=== PATIENT | female | born 1975 | race Caucasian/White ===

== ENCOUNTER 2017-04-16 21:15 | Inpatient (IN) | payer OTHER, MEDICAID, MEDICARE ==
[~2017-04-16] VITALS: Ht 162.6 cm; Wt 97.5 kg
[~2017-04-16 21:15] MED LIST: AMOX500T PO; DICL-86 PO
[2017-04-16 21:50] VITALS: BP 112/80; PULSE 65; RESP 14; TEMP 98.2; O2SAT 97
[2017-04-16 23:35] VITALS: BP 129/75; PULSE 68; RESP 18; O2SAT 100
[2017-04-16 23:36] VITALS: RESP 18; O2SAT 98
--- NOTE | 2017-04-16 23:38 | PD ---
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 Patient states that it started yesterday with a numbness and tingling. She states that the headache started tonight about 10:00. She reports that the numbness and tingling yesterday was in her right side. She said when the headache came on it went to her entire body. She denies any photophobia. She denies neck pain. She denies any chest pain or chest pressure. She states she takes a blood pressure medicine but does not recall which one it is. There are no other complaints time my examination. 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 PFSH Past Medical History High Cholesterol: Yes Diminished Hearing: No Hypertension: Yes Neurologic: Yes ?: Not Tubal Ligation: Yes Past Surgical History Section: Yes (X2) Neurologic Surgery: Yes (BRAIN SURGERY AT ) Other Surgery: Yes (HEAD SURG AT WHICH CAUSED LEFT SIDE PARAYLISIS) Social History Alcohol Use: No Tobacco Use: No Substance Use: Yes (MARIJUANA ) Allergies-Medications (Allergen,Severity, Reaction): Coded Allergies: Codeine (Verified Allergy, Mild, EDEMA, 01/30/07) Ultram (Verified Allergy, Mild, "MY EYES ROLL BACK", 07/06/07) Reported Meds & Prescriptions Reported Meds & Active Scripts Active Active Prescriptions or Reported Medications Unobtainable Review of Systems Except as stated in HPI: all other systems reviewed are Neg General / Constitutional: No: Fever, Chills Eyes: No: Diploplia, Blurred Vision HENT: Positive: Headaches, No: Neck Pain Cardiovascular: No: Chest Pain or Discomfort, Palpitations Respiratory: No: Cough, Shortness of Breath Gastrointestinal: No: Nausea, Vomiting, Abdominal Pain Genitourinary: No: Frequency, Dysuria Neurologic: Positive: Headache, Slurred Speech (earlier, none now), Sensory Disturbance (numbness and tingling of her right side and left side. Patient reports it started on her right side.), No: Change in Mentation Physical Exam Narrative GENERAL: Well-developed well-nourished female in no acute respiratory distress. SKIN: Focused skin assessment warm/dry. HEAD: Atraumatic. Normocephalic. EYES: Extraocular muscles appeared intact. No scleral icterus. No injection or drainage. ENT: No nasal bleeding or discharge. Mucous membranes pink and moist. NECK: Trachea midline. No JVD. Supple. CARDIOVASCULAR: Regular rate and rhythm. No murmur appreciated. RESPIRATORY: No accessory muscle use. Clear to auscultation. Breath sounds equal bilaterally. GASTROINTESTINAL: Abdomen soft, non-tender, nondistended. No pulsatile masses. MUSCULOSKELETAL: Left BKA. Patient also has contractures of her left upper extremity from . Patient's missing several toes on her right foot secondary to . NEUROLOGICAL: Awake and alert. No obvious cranial nerve deficits. Motor grossly within normal limits. Normal speech. Data Data Last Documented VS Vital Signs Date Time Temp Pulse Resp B/P Pulse Ox O2 Delivery O2 Flow Rate FiO2 04/16/17 23:36 18 98 04/16/17 23:35 68 129/75 04/16/17 21:50 98.2 Room Air Orders Complete Blood Count With Diff (04/16/17 23:33) Comprehensive Metabolic Panel (04/16/17 23:33) Ct Brain W/O Iv Contrast(Rout) (04/16/17 23:33) Chest, Single Ap (04/16/17 23:33) Place In Observation (04/17/17 ) Vital Signs (Adult) Q4H (04/17/17 02:57) Activity Oob With Assistance (04/17/17 02:57) Diet Regular Basic (04/17/17 Breakfast) Sodium Chlor 0.9% 1000 Ml Inj (Ns 1000 M (04/17/17 02:57) Sodium Chloride 0.9% Flush (Ns Flush) (04/17/17 03:00) Sodium Chloride 0.9% Flush (Ns Flush) (04/17/17 09:00) Ondansetron Inj (Zofran Inj) (04/17/17 03:00) Comprehensive Metabolic Panel (04/17/17 09:00) Complete Blood Count With Diff (04/17/17 09:00) Acetaminophen (Tylenol) (04/17/17 03:00) Morphine Inj (Morphine Inj) (04/17/17 03:00) Morphine Inj (Morphine Inj) (04/17/17 03:00) Docusate Sodium-Senna (Natasha-Colace) (04/17/17 09:00) Magnesium Hydroxide Liq (Milk Of Magnesi (04/17/17 03:00) Sennosides (Senokot) (04/17/17 03:00) Bisacodyl Supp (Dulcolax Supp) (04/17/17 03:00) Lactulose Liq (Lactulose Liq) (04/17/17 03:00) Mri Brain W/O Contrast (04/17/17 ) Beta Hcg (Quant/Titer) (04/17/17 02:57) Lipid Profile (04/17/17 09:00) Hemoglobin (Hgb) A1c (04/17/17 09:00) Aspirin Ec (Ecotrin Ec) (04/17/17 09:00) Pravastatin (Pravachol) (04/17/17 09:00) Admit Order (Ed Use Only) (04/17/17 03:20) Labs Laboratory Tests Test 04/16/17 23:36 White Blood Count 10.1 TH/MM3 Red Blood Count 5.14 MIL/MM3 Hemoglobin 11.6 GM/DL Hematocrit 37.6 % Mean Corpuscular Volume 73.3 FL Mean Corpuscular Hemoglobin 22.5 PG Mean Corpuscular Hemoglobin 30.8 % Concent Red Cell Distribution Width 17.7 % Platelet Count 287 TH/MM3 Mean Platelet Volume 7.9 FL Neutrophils (%) (Auto) 61.6 % Lymphocytes (%) (Auto) 27.9 % Monocytes (%) (Auto) 7.0 % Eosinophils (%) (Auto) 3.1 % Basophils (%) (Auto) 0.4 % Neutrophils # (Auto) 6.2 TH/MM3 Lymphocytes # (Auto) 2.8 TH/MM3 Monocytes # (Auto) 0.7 TH/MM3 Eosinophils # (Auto) 0.3 TH/MM3 Basophils # (Auto) 0.0 TH/MM3 CBC Comment DIFF FINAL Differential Comment Sodium Level 141 MEQ/L Potassium Level 4.1 MEQ/L Chloride Level 107 MEQ/L Carbon Dioxide Level 28.1 MEQ/L Anion Gap 6 MEQ/L Blood Urea Nitrogen 13 MG/DL Creatinine 1.08 MG/DL Estimat Glomerular Filtration 55 ML/MIN Rate Random Glucose 89 MG/DL Calcium Level 8.8 MG/DL Total Bilirubin 0.4 MG/DL Aspartate Amino Transf 15 U/L (AST/SGOT) Alanine Aminotransferase 16 U/L (ALT/SGPT) Alkaline Phosphatase 114 U/L Total Protein 7.7 GM/DL Albumin 3.8 GM/DL MDM Medical Decision Making Medical Screen Exam Complete: Yes Emergency Medical Condition: Yes Differential Diagnosis CVA versus TIA versus metabolic derangement. Narrative Course 42-year-old female presents with complaint of headache and numbness on her right side. This was followed then by numbness to her right and left side. The patient's CT scan shows no evidence of acute intracranial abnormalities. Patient also had an episode of slurred speech. This is since resolved. Given her history and the history of her symptoms, she'll be admitted for TIA workup. His was discussed with Dr. Wills who agrees for the observation admission. Diagnosis Primary Impression: TIA versus CVA Admitting Information Admitting Physician Requests: Observation Scripts Unable to Obtain Active Prescriptions or Reported Meds Delta Weinstein MD Apr 16, 2017 23:38
[2017-04-16] MEDS ORDERED: SODIUM CHLORIDE 0.9% FLUSH 10 ML FLUSH IVF PRN (23:45)
[2017-04-17] VITALS (7 sets, daily range): BP systolic 100–131; BP diastolic 58–75; PULSE 70–85; RESP 18–20; TEMP 96.8–98.2; O2SAT 95–99
--- NOTE | 2017-04-17 00:09 | RADRPT ---
EXAM DATE/TIME: 04/16/2017 23:52 [facility] COMPARISON: No previous studies available for comparison. INDICATIONS : Cephalgia. Right sided numbness that has subsided. RADIATION DOSE: 56.35 CTDIvol (mGy) MEDICAL HISTORY : None SURGICAL HISTORY : Brain surgery at . ENCOUNTER: Initial ACUITY: 1 day PAIN SCALE: 5/10 LOCATION: cranial TECHNIQUE: Multiple contiguous axial images were obtained of the head. Using automated exposure control and adj ustment of the mA and/or kV according to patient size, radiation dose was kept as low as reasonably a chievable to obtain optimal diagnostic quality images. DICOM format image data is available electro nically for review and comparison. FINDINGS: Noncontrast axial head CT demonstrates the ventricles to be normal in size and configuration with a n ormal sulcal pattern. No acute intracranial hemorrhage, acute cortical infarction, mass or midline sh ift is seen. There is encephalomalacia in the right frontal region with ex vacuo dilatation of the fr ontal horn of the right lateral ventricle. Posterior fossa structures are unremarkable. Bone windows demonstrate right frontal craniotomy. CONCLUSION: 1. No evidence of acute intracranial pathology. No masses are identified. 2. Postsurgical changes with right frontal encephalomalacia Lenard Warner MD on April 17, 2017 at 0:06 Board Certified Radiologist. This report was verified electronically.
[2017-04-17 00:10] LABS: AUTOMATED NEUTROPHIL # 6.2 TH/MM3 (1.8-7.7); BASOPHIL % 0.4 % (0.0-2.0); EOSINOPHIL # 0.3 TH/MM3 (0-0.4); EOSINOPHIL % 3.1 % (0.0-4.0); HEMATOCRIT 37.6 % (35.0-46.0); HEMO FLAGS DIFF FINAL; LYMPH % 27.9 % (9.0-44.0); LYMPHOCYTE # 2.8 TH/MM3 (1.0-4.8); MEAN CELL VOLUME 73.3 FL (80.0-100.0); MEAN CORPUSCULAR HEMOGLOBIN 22.5 PG (27.0-34.0); MEAN CORPUSCULAR HGB CONC 30.8 % (32.0-36.0); NEUT % 61.6 % (16.0-70.0); PLATELET COUNT 287 TH/MM3 (150-450); RED BLOOD COUNT 5.14 MIL/MM3 (4.00-5.30); RED CELL DISTRIBUTION WIDTH 17.7 % (11.6-17.2); WHITE BLOOD COUNT 10.1 TH/MM3 (4.0-11.0)
--- NOTE | 2017-04-17 00:34 | RADRPT ---
EXAM DATE/TIME: 04/17/2017 00:05 [facility] COMPARISON: No previous studies available for comparison. INDICATIONS : CVA MEDICAL HISTORY : Hypertension. SURGICAL HISTORY : None. ENCOUNTER: Initial ACUITY: 2 days PAIN SCORE: 10/10 LOCATION: cranial FINDINGS: A single view of the chest demonstrates the lungs to be symmetrically aerated without evidence of mas s, infiltrate or effusion. The cardiomediastinal contours are unremarkable. Osseous structures are intact. CONCLUSION: 1. No acute cardiopulmonary disease. Lenard Warner MD on April 17, 2017 at 0:32 Board Certified Radiologist. This report was verified electronically.
[2017-04-17 00:38] LABS: ALT (GPT) 16 U/L (10-53); ANION GAP 6 MEQ/L (5-15); AST (GOT) 15 U/L (15-37); BICARBONATE 28.1 MEQ/L (21.0-32.0); BLOOD UREA NITROGEN 13 MG/DL (7-18); CHLORIDE 107 MEQ/L (98-107); GLOMERULAR FILTRATION RATE 55 ML/MIN (>89); POTASSIUM 4.1 MEQ/L (3.5-5.1); SODIUM (NA) 141 MEQ/L (136-145)
[2017-04-17 00:41] LABS: ALKALINE PHOSPHATASE 114 U/L (45-117); TOTAL BILIRUBIN ADULT 0.4 MG/DL (0.2-1.0)
[2017-04-17] MEDS ORDERED: ONDANSETRON HCL 4 MG/2 ML VIAL IV PUSH ONE (01:30)
[2017-04-17] MEDS ORDERED: SODIUM CHLOR 0.9% 1000 ML INJ 1,000 ML IV ONE (01:30)
[2017-04-17] MEDS ORDERED: SODIUM CHLOR 0.9% 1000 ML INJ 1,000 ML IV SCH ×2 (02:57→11:00)
[2017-04-17] MEDS ORDERED: MORPHINE SULFATE 4 MG/ML INJ IV PRN ×2 (03:00)
[2017-04-17] MEDS ORDERED: MAGNESIUM HYDROXIDE SUSP 30 ML CUP PO PRN (03:00)
[2017-04-17] MEDS ORDERED: ACETAMINOPHEN 325 MG TAB PO PRN (03:00)
[2017-04-17] MEDS ORDERED: LACTULOSE SYRUP 20 GM/30 ML CUP PO PRN (03:00)
[2017-04-17] MEDS ORDERED: BISACODYL 10 MG SUPP RECTAL PRN (03:00)
[2017-04-17] MEDS ORDERED: SODIUM CHLORIDE 0.9% FLUSH 10 ML FLUSH IV FLUSH PRN (03:00)
[2017-04-17] MEDS ORDERED: SENNOSIDES 8.6 MG TAB PO PRN (03:00)
[2017-04-17 03:01] LABS: MEAN CORPUSCULAR HGB CONC 29.6 % (32.0-36.0)
[2017-04-17] MEDS ORDERED: PERC10TA27 PO (04:26)
[2017-04-17] MEDS ORDERED: LORazepam 2 MG/ML VIAL IV PUSH PRN (04:30)
[2017-04-17 04:31] LABS: BETA HCG QUANT 1 MIU/ML (0-5)
--- NOTE | 2017-04-17 04:36 | HHI.HP ---
HPI Service [facility] Primary Care Physician Unknown Admission Diagnosis CVA vs TIA Diagnoses: (1) TIA (transient ischemic attack) Diagnosis: Principal (2) Headache Diagnosis: Principal (3) HTN (hypertension) Diagnosis: Principal (4) ARANZA (acute kidney injury) Diagnosis: Principal Travel History International Travel<30 Days: No Contact w/Intl Traveler <30 Da: No Traveled to Known Affected Are: No History of Present Illness This 42-year-old female with PMH of HTN, Hyperlipidemia, Congenital Malformation and Chronic Left-Sided Hemiparesis who presented to the ER w/ complaints of severe headache in addition to right-sided numbness/tingling starting last night at approx 22:00. Reports episode of slurred speech, however now resolved. Denies fever, chills, nausea/vomiting or photophobia. On arrival, BP 129/75, HR 68, O2 sat 100% on RA, Afebrile. CBC essentially unremarkable. Creatinine 1.08, previously 0.85 on 07/23/16. CT Head with no acute findings, postsurgical changes with right frontal encephalomalacia. CXR with no acute findings. Review of Systems Except as stated in HPI: all other systems reviewed are Neg ROS: 14 point review of systems otherwise negative. Past Family Social History Past Medical History PMH: HTN, Hyperlipidemia, Congenital Malformation and Chronic Left-Sided Hemiparesis Past Surgical History PAST SURGICAL HISTORY: Cranial Surgery, Left BKA Allergies: Coded Allergies: Codeine (Verified Allergy, Mild, EDEMA, 01/30/07) Ultram (Verified Allergy, Mild, "MY EYES ROLL BACK", 07/06/07) Family History PAST FAMILY HISTORY: Reviewed. No h/o DM or CAD Social History PAST SOCIAL HISTORY: Negative for alcohol or tobacco. +Marijuana Physical Exam Vital Signs Vital Signs Date Time Temp Pulse Resp B/P Pulse Ox O2 Delivery O2 Flow Rate FiO2 04/17/17 04:19 70 18 112/64 98 04/16/17 23:36 18 98 04/16/17 23:35 68 18 129/75 100 04/16/17 23:24 68 18 98 04/16/17 21:50 98.2 65 14 112/80 97 Room Air Physical Exam PE: GENERAL: Middle-aged white female in no acute distress. HEENT: PERRLA, EOMI. No scleral icterus or conjunctival pallor. No lid lag or facial droop. CARDIOVASCULAR: Regular rate and rhythm. No obvious murmurs to auscultation. No chest tenderness to palpation. RESPIRATORY: No obvious rhonchi or wheezing. Clear to auscultation. Breath sounds equal bilaterally. GASTROINTESTINAL: Abdomen soft, non-tender, nondistended. BS normal. MUSCULOSKELETAL: Extremities without clubbing, cyanosis, or edema. No obvious deformities. LUE contracted. Left BKA NEUROLOGICAL: Awake, alert and oriented x4. No new focal neurologic deficits. Moving both upper and lower extremities spontaneously. Laboratory Laboratory Tests Test 04/16/17 23:36 White Blood Count 10.1 Red Blood Count 5.14 Hemoglobin 11.6 Hematocrit 37.6 Mean Corpuscular Volume 73.3 Mean Corpuscular Hemoglobin 22.5 Mean Corpuscular Hemoglobin 30.8 Concent Red Cell Distribution Width 17.7 Platelet Count 287 Mean Platelet Volume 7.9 Neutrophils (%) (Auto) 61.6 Lymphocytes (%) (Auto) 27.9 Monocytes (%) (Auto) 7.0 Eosinophils (%) (Auto) 3.1 Basophils (%) (Auto) 0.4 Neutrophils # (Auto) 6.2 Lymphocytes # (Auto) 2.8 Monocytes # (Auto) 0.7 Eosinophils # (Auto) 0.3 Basophils # (Auto) 0.0 CBC Comment DIFF FINAL Differential Comment Sodium Level 141 Potassium Level 4.1 Chloride Level 107 Carbon Dioxide Level 28.1 Anion Gap 6 Blood Urea Nitrogen 13 Creatinine 1.08 Estimat Glomerular Filtration 55 Rate Random Glucose 89 Calcium Level 8.8 Total Bilirubin 0.4 Aspartate Amino Transf 15 (AST/SGOT) Alanine Aminotransferase 16 (ALT/SGPT) Alkaline Phosphatase 114 Total Protein 7.7 Albumin 3.8 Result Diagram: 04/16/17233504/16/17 8549 Assessment and Plan Problem List: (1) TIA (transient ischemic attack) ICD Code: G45.9 Status: Acute (2) Headache ICD Code: R51 Status: Acute (3) HTN (hypertension) ICD Code: I10 Status: Acute (4) ARANZA (acute kidney injury) ICD Code: N17.9 Status: Acute Assessment and Plan A/P: 1. TIA: reports acute onset of slurred speech and right-sided hemiparesis associated w/ headache, symptoms now resolved, possibly related to Headache/[employer] Migraine. CT Head w/ no acute findings, post surgical changes w/ right frontal encephalomalacia, images reviewed by me. Admit for Obs, check MRI Brain, Lipid Profile, Hgb A1c. ASA, Statin. 2. Headache: c/o acute severe headache, now resolved. CT Head negative as above. Analgesics/antiemetics as needed. 3. ARANZA: Creatinine 1.08, previously 0.85 on 07/23/16. IVF for hydration, repeat labs in am. 4. HTN: BP controlled. Unsure what home medication she takes for BP. Will monitor. 5. DVT Prophylaxis: SCD/Teds. 6. Social work for d/c planning as needed. 7. Case discussed w/ ER physician at length Meche Medina MD Apr 17, 2017 04:36
[2017-04-17] MEDS: ASPIRIN EC 81 MG TABEC PO SCH (08:22)
[2017-04-17] MEDS: DOCUSATE SODIUM 50 MG/SENNA 8.6 MG TAB PO SCH ×2 (08:22→21:00)
[2017-04-17] MEDS: oxyCODONE/ACETAMINOPHEN 10 MG/325 MG TAB PO PRN ×2 (08:22→21:11)
[2017-04-17] MEDS: PRAVASTATIN SOD 40 MG TAB PO SCH (08:22)
[2017-04-17] MEDS ORDERED: SODIUM CHLORIDE 0.9% FLUSH 10 ML FLUSH IV FLUSH SCH (09:00)
--- NOTE | 2017-04-17 09:35 | EKG ---
Date Performed: 04/16/2017 Time Performed: 23:21:16 PTAGE: 42 years EKG: Sinus rhythm NORMAL ECG NO PREVIOUS TRACING DOCTOR: Lenard Arevalo Interpretating Date/Time 04/17/2017 09:32:09
--- NOTE | 2017-04-17 10:27 | RADRPT ---
EXAM DATE/TIME: 04/17/2017 09:23 [facility] COMPARISON: CT BRAIN W/O CONTRAST, April 16, 2017, 23:52. INDICATIONS : Cephalgia. Right side numbness MEDICAL HISTORY : Hypertension. Hypercholesterolemia. Left hemiplegia SURGICAL HISTORY : Craniotomy. section. Left lower leg amputation ENCOUNTER: Initial ACUITY: 1 day PAIN SCORE: 5/10 LOCATION: cranial TECHNIQUE: Multiplanar, multisequence MRI of the brain was performed without contrast. FINDINGS: There is encephalomalacia with extra-axial dilatation of the lateral ventricle involving the right fr ontal lobe. There is a sub-1 cm focus of high flair signal and restricted diffusion involving the skyal trum semiovale bowel on the left within the parietal lobe. This shows loss of signal on the ADC mappi ng. The remaining brain shows normal signal. No hemorrhage or mass. Orbital structures and paranasal sinuses are unremarkable. CONCLUSION: 1. Tiny acute lacunar infarction involving the centrum semiovale on the left. 2. Encephalomalacia involving the right frontal lobe. Pa Lopez Jr., MD on April 17, 2017 at 10:22 Board Certified Radiologist. This report was verified electronically.
[2017-04-17] MEDS ORDERED: ENALAPRILAT 1.25 MG/ML VIAL IV PRN (10:45)
--- NOTE | 2017-04-17 10:50 | HHI.PR ---
Subjective Remarks Follow-up for multiple neurologic complaints. The patient states that last night she began having headache, blurred vision, right-sided tingling, and slurring and stuttering speech. She continues to have headache and blurred vision today. Right-sided tingling and slurred speech are improved. She denies any chest pain, shortness breath, palpitations. She states she takes medicine at home for blood pressure, but not sure what the medication is. She denies any tobacco use. Eyes any history of arrhythmia. She did recently have left BKA secondary to infection last month. Objective Vitals Vital Signs Date Time Temp Pulse Resp B/P Pulse Ox O2 Delivery O2 Flow Rate FiO2 04/17/17 09:00 96.8 73 18 100/58 96 04/17/17 04:19 70 18 112/64 98 04/16/17 23:36 18 98 04/16/17 23:35 68 18 129/75 100 04/16/17 23:24 68 18 98 04/16/17 21:50 98.2 65 14 112/80 97 Room Air Result Diagram: 04/16/17 2336 04/16/17 2336 Imaging Last Impressions Brain MRI 04/17/17 0000 Signed Impressions: Service Date/Time: Monday, April 17, 2017 09:23 - CONCLUSION: 1. Tiny acute lacunar infarction involving the centrum semiovale on the left. 2. Encephalomalacia involving the right frontal lobe. Pa Lopez Jr., MD Head CT 04/16/173 Signed Impressions: Service Date/Time: April 23:52 - CONCLUSION: 1. No evidence of acute intracranial pathology. No masses are identified. 2. Postsurgical changes with right frontal encephalomalacia Lenard Warner MD Chest X-Ray 04/16/172332 Signed Impressions: Service Date/Time: Monday, April 17, 2017 00:05 - CONCLUSION: 1. No acute cardiopulmonary disease. Lenard Warner MD Objective Remarks GENERAL: Well-developed well-nourished. In no acute distress. SKIN: Warm and dry. Congenitally malformed left upper extremity, right foot. HEENT: Normocephalic. Pupils equal and round. Mucous membranes pink and moist. CARDIOVASCULAR: Regular rate and rhythm. No murmur appreciated. RESPIRATORY: No accessory muscle use. Clear to auscultation. Breath sounds equal bilaterally. GASTROINTESTINAL: Abdomen soft, non-tender, nondistended. Bowel sounds x4. MUSCULOSKELETAL: Left BKA. No clubbing or cyanosis. No edema. NEUROLOGICAL: Awake and alert. Chronic left upper extremity and left lower extremity weakness per patient. Sensation intact and symmetric bilaterally in the upper extremities. Possibly some mild left-sided facial droop. Possible slightly slurred speech. PSYCHIATRIC: Appropriate mood and affect; insight and judgment normal. A/P Problem List: (1) HTN (hypertension) ICD Code: I10 Status: Chronic (2) ARANZA (acute kidney injury) ICD Code: N17.9 Status: Acute (3) CVA (cerebral vascular accident) ICD Code: I63.9 Status: Acute Assessment and Plan 42-year-old female with past medical history of HTN, congenital left-sided malformation who presented for headache, blurred vision, right-sided paresthesias, and slurred speech Acute CVA: Brain MRI shows tiny acute lacunar infarction involving the centrum semiovale on the left; likely chronic encephalomalacia involving the right frontal lobe from previous childhood craniotomy. -Head been flat, permissive hypertension, IVF, bedside swallow eval, NIH stroke scale -Check echocardiogram and carotid ultrasound -Monitor on telemetry -Consult neurology -Check lipid panel and hemoglobin A1c -Started on aspirin -PT/OT/ST History of hypertension: BP is currently well controlled. Permissive for now. IV Vasotec as needed. History of recent left BKA: Secondary to infection. Continue pain control with oxycodone. DVT prophylaxis: SCD right lower extremity. Discharge Planning Admit to inpatient for further CVA workup. Problem Qualifiers (1) HTN (hypertension): Qualified Code: I10 - Essential hypertension (2) CVA (cerebral vascular accident): Denver Freire Apr 17, 2017 10:50
--- NOTE | 2017-04-17 12:02 | RADRPT ---
EXAM DATE/TIME: 04/17/2017 11:06 [facility] COMPARISON: No previous studies available for comparison. INDICATIONS : Cerebrovascular accident. MEDICAL HISTORY : Hypercholesterolemia. Paraylisis left side. Hypertension. GERD. PTSD. Depression. Anxiety. SURGICAL HISTORY : Tubal ligation. section. Brain surgery at . ENCOUNTER: Initial ACUITY: 1 day PAIN SCORE: 0/10 LOCATION: Bilateral neck PEAK SYSTOLIC VELOCITIES (cm/sec): ICA/CCA RATIO: Right: 0.9 Left: 1.3 ICA: Right: 71 Left: 116 CCA: Right: 86 Left: 92 ECA: Right: 87 Left: 124 VERTEBRAL: Right: 47 antegrade Left: 58 antegrade Elevated flow velocities and ICA/CCA ratios have been found to correlate with increased degrees of vessel stenosis, calculated as percentage of diameter relative to a normal segment of distal ICA/CCA FINDINGS: RIGHT CAROTID: No significant stenosis is visualized. The waveforms are within normal limits. LEFT CAROTID: No significant stenosis is visualized. The waveforms are within normal limits. VERTEBRAL ARTERIES: Antegrade flow is seen in both vertebral arteries. MISCELLANEOUS: None. CONCLUSION: 1. No significant atherosclerotic disease or stenosis within the internal carotid arteries bilaterall y. 2. There is antegrade flow in both vertebral arteries. Alli Sanchez MD on April 17, 2017 at 11:58 Board Certified Radiologist. This report was verified electronically.
[2017-04-17 20:16] LABS: BASOPHIL % 0.5 % (0.0-2.0); EOSINOPHIL # 0.4 TH/MM3 (0-0.4); EOSINOPHIL % 4.5 % (0.0-4.0); HEMATOCRIT 35.5 % (35.0-46.0); HEMO FLAGS DIFF FINAL; LYMPH % 31.5 % (9.0-44.0); LYMPHOCYTE # 2.8 TH/MM3 (1.0-4.8); MEAN CELL VOLUME 74.1 FL (80.0-100.0); MEAN CORPUSCULAR HEMOGLOBIN 21.9 PG (27.0-34.0); MONO % 7.1 % (0.0-8.0); NEUT % 56.4 % (16.0-70.0); PLATELET COUNT 265 TH/MM3 (150-450); RED CELL DISTRIBUTION WIDTH 17.7 % (11.6-17.2); WHITE BLOOD COUNT 8.8 TH/MM3 (4.0-11.0)
[2017-04-17] MEDS ORDERED: SODIUM CHLORIDE 0.9% FLUSH 5 ML FLUSH IV FLUSH PRN (20:30)
[2017-04-17] MEDS ORDERED: DEXTROSE 50% IN WATER 50 ML VIAL(D50) IV PUSH PRN (20:30)
[2017-04-17] MEDS ORDERED: GLUCAGON 1 MG/ML VIAL OTHER PRN (20:30)
[2017-04-17 20:44] LABS: ALKALINE PHOSPHATASE 88 U/L (45-117); ALT (GPT) 12 U/L (10-53); ANION GAP 8 MEQ/L (5-15); AST (GOT) 7 U/L (15-37); BICARBONATE 24.1 MEQ/L (21.0-32.0); BLOOD UREA NITROGEN 13 MG/DL (7-18); CALCIUM-PROTEIN CORRECTED 8.1 MG/DL (8.5-10.1); CHLORIDE 113 MEQ/L (98-107); GLOMERULAR FILTRATION RATE 74 ML/MIN (>89); HDL CHOLESTEROL 30.2 MG/DL (40.0-60.0); LDL CHOLESTEROL 121 MG/DL (0-99); POTASSIUM 3.5 MEQ/L (3.5-5.1); SODIUM (NA) 145 MEQ/L (136-145); TOTAL BILIRUBIN ADULT 0.2 MG/DL (0.2-1.0)
[2017-04-17] MEDS: INSULIN ASPART SUPPLEMENTAL SCALE SQ SCH (21:00)
[2017-04-17] MEDS: SODIUM CHLORIDE 0.9% FLUSH 5 ML FLUSH IV FLUSH SCH (21:00)
[2017-04-17] MEDS: SODIUM CHLOR 0.9% 1000 ML INJ 1,000 ML IV SCH (21:07)
--- NOTE | 2017-04-17 21:27 | MB ---
cc: NINI MCKEON. PHD DATE OF CONSULTATION 04/17/17 CONSULTATIONS Stroke HISTORY OF PRESENT ILLNESS Ms. Mckeon is a 42-year female who has a lifelong history of left-sided weakness due to some type of injury or defect. She now complains of sudden onset of headache and numbness involving the right arm and right leg. PAST MEDICAL HISTORY 1. she has a history of left leg amputation due to MRSA infection 2. History of chronic left-sided weakness as noted above. 3. Hypertension. 4. Cranial surgery 5. Left BKA. ALLERGIES CODEINE ULTRAM MEDICATIONS Current, 1. Vasotec p.r.n. hypertension. 2. Aspirin 81 mg daily. 3. Pravachol 40 mg daily. 4. Oxycodone for pain. 5. Zofran p.r.n. 6. Tylenol p.r.n. 7. Milk of Magnesia 8. Senokot, 9. Dulcolax. NEUROLOGIC EXAMINATION Blood pressure is 131/75, pulse is 84, respirations 20, temperature 98 degrees. Higher cortical functions intact. Cranial nerves are intact. On motor exam, she has weakness left arm and the proximal left leg at 4/5. He has normal strength in the right, diminished sensitivity right arm and right leg. Reflexes are symmetric. IMAGING STUDIES Brain MRI shows a very small acute lacunar stroke on the left centrum semiovale. Carotid ultrasound - no significant stenosis is identified. CT of the brain unremarkable. LABORATORY DATA The white count is 10,100, hemoglobin 11.6, hematocrit 37% platelet count 287,070. Sodium 141, potassium 4.1, chloride 107, CO2 28.1, BUN is 13, creatinine 1.08, GFR is 55, glucose 89, AST 15, ALT 16, lipid panel pending. IMPRESSION Lacunar stroke in left centrum semiovale. RECOMMENDATIONS Continue aspirin 81 mg daily. Also check an echocardiogram. We will follow up on lipid panel. Also monitor cardiac telemetry to rule out A. fib. Consult physical therapy. MD ISSA Pina/ /8:23 PM /9:17 PM
[2017-04-17 22:26] LABS: HEMOGLOBIN A1b 1.7 %; HEMOGLOBIN Ao 85.4 %; HEMOGLOBIN LA1C 2.1 %; HEMOGLOBIN P3 3.5 %
[2017-04-18] VITALS (11 sets, daily range): BP systolic 112–140; BP diastolic 58–75; PULSE 75–87; RESP 16–20; TEMP 96.9–97.4; O2SAT 93–99
[2017-04-18] MEDS: oxyCODONE/ACETAMINOPHEN 10 MG/325 MG TAB PO PRN ×4 (01:36→19:54)
[2017-04-18] MEDS: INSULIN ASPART SUPPLEMENTAL SCALE SQ SCH ×4 (07:00→20:00)
[2017-04-18] MEDS: SODIUM CHLORIDE 0.9% FLUSH 5 ML FLUSH IV FLUSH SCH ×2 (08:42→19:55)
[2017-04-18] MEDS: ONDANSETRON HCL 4 MG/2 ML VIAL IVP PRN ×3 (08:42→22:45)
[2017-04-18] MEDS: DOCUSATE SODIUM 50 MG/SENNA 8.6 MG TAB PO SCH ×2 (09:00→19:55)
[2017-04-18] MEDS: PRAVASTATIN SOD 40 MG TAB PO SCH (09:19)
[2017-04-18] MEDS: ASPIRIN EC 81 MG TABEC PO SCH (09:19)
[2017-04-18] MEDS: SODIUM CHLOR 0.9% 1000 ML INJ 1,000 ML IV SCH (12:04)
--- NOTE | 2017-04-18 20:00 | HHI.PR ---
Subjective Remarks MRI shows a small left centrum semiovale lacunar infarct and right frontal encephalomalacia. Patient still has some symptoms of visual changes and headache. Carotid ultrasound is negative. No arrhythmia thus far on telemetry. No new complaints from the patient. Objective Vital Signs Date Time Temp Pulse Resp B/P Pulse Ox O2 Delivery O2 Flow Rate FiO2 04/18/17 17:50 79 04/18/17 16:00 97.4 87 18 140/75 98 04/18/17 15:15 80 04/18/17 14:54 83 04/18/17 13:30 83 04/18/17 11:47 96.9 80 17 113/60 94 04/18/17 08:00 97.0 79 17 123/63 93 04/18/17 06:39 75 04/18/17 04:20 97.1 78 16 131/68 96 04/18/17 00:20 97.2 78 16 112/62 96 04/17/17 22:15 18 04/17/17 20:14 98.2 84 20 131/75 99 04/17/17 20:05 85 04/17/17 19:59 21 I/O 04/17/17 04/17/17 04/17/17 04/18/17 04/18/17 04/18/17 06:59 14:59 22:59 06:59 14:59 22:59 Intake Total 1160 ml 120 ml 765 ml 169 ml Output Total 280 ml Balance 1160 ml 120 ml 485 ml 169 ml Intake Oral 720 ml 120 ml 720 ml IV Total 440 ml 45 ml 169 ml Output Emesis 280 ml # Voids 1 1 0 4 # Bowel Movements 0 0 Result Diagram: 04/17/17194504/17/171945 Objective Remarks GENERAL: NAD, A&Ox3 HEAD: Normocephalic. NECK: Supple, trachea midline. No lymphadenopathy. EYES: No scleral icterus. No injection or drainage. CARDIOVASCULAR: Regular rate and rhythm without murmurs, gallops, or rubs. RESPIRATORY: Breath sounds equal bilaterally. No accessory muscle use. GASTROINTESTINAL: Abdomen soft, non-tender, nondistended. MUSCULOSKELETAL: No cyanosis, or edema. SKIN: Warm and dry. Scar at forehead. NEURO: No focal neurological deficitis. A/P Problem List: (1) CVA (cerebral vascular accident) ICD Code: I63.9 (2) HTN (hypertension) ICD Code: I10 (3) ARANZA (acute kidney injury) ICD Code: N17.9 (4) Headache ICD Code: R51 Assessment and Plan Assessment and plan 42-year-old female admitted secondary to acute CVA Acute CVA Headache Continue aspirin Neurology following MRI shows a small left centrum semiovale lacunar infarct and right frontal encephalomalacia Follow clinically for neurologic changes Patient has several family members with strokes at younger ages, so genetic predisposition may be present Acute kidney injury Resolved Discontinue IV hydration Follow renal function Hypertension Monitor blood pressures DVT prophylaxis SCDs Problem Qualifiers (1) CVA (cerebral vascular accident): (2) HTN (hypertension): Qualified Code: I10 - Essential hypertension Agus Regalado MD Apr 18, 2017 20:00
[2017-04-18] MEDS ORDERED: KETOROLAC TROMETHAMINE 30 MG/ML (IVP) VIAL IV PUSH ONE (21:45)
[2017-04-19] VITALS (9 sets, daily range): BP systolic 109–137; BP diastolic 56–91; PULSE 78–92; RESP 17–20; TEMP 96–97.7; O2SAT 95–98
[2017-04-19] MEDS: oxyCODONE/ACETAMINOPHEN 10 MG/325 MG TAB PO PRN ×7 (00:22→20:54)
[2017-04-19] MEDS: INSULIN ASPART SUPPLEMENTAL SCALE SQ SCH ×4 (06:08→21:00)
[2017-04-19] MEDS: DOCUSATE SODIUM 50 MG/SENNA 8.6 MG TAB PO SCH ×2 (08:36→20:55)
[2017-04-19] MEDS: PRAVASTATIN SOD 40 MG TAB PO SCH (08:36)
[2017-04-19] MEDS: ASPIRIN EC 81 MG TABEC PO SCH (08:36)
[2017-04-19] MEDS: SODIUM CHLORIDE 0.9% FLUSH 5 ML FLUSH IV FLUSH SCH ×2 (09:00→20:55)
[2017-04-19] MEDS ORDERED: ASPI-99 PO (09:28)
--- NOTE | 2017-04-19 10:14 | HHI.PR ---
Subjective Remarks Patient still complains of symptoms of right-sided weakness. She does not feel fully functional. PT evaluation is pending. Objective Vital Signs Date Time Temp Pulse Resp B/P Pulse Ox O2 Delivery O2 Flow Rate FiO2 04/19/17 08:00 96.0 78 18 112/60 97 04/19/17 04:37 81 04/19/17 04:00 97.3 87 20 137/61 95 04/19/17 00:00 97.5 85 20 109/56 98 04/18/17 20:00 97.1 80 20 121/58 99 04/18/17 17:50 79 04/18/17 16:00 97.4 87 18 140/75 98 04/18/17 15:15 80 04/18/17 14:54 83 04/18/17 13:30 83 04/18/17 11:47 96.9 80 17 113/60 94 I/O 04/18/17 04/18/17 04/18/17 04/19/17 04/19/17 04/19/17 07:00 15:00 23:00 07:00 15:00 23:00 Intake Total 120 ml 765 ml 529 ml 120 ml Output Total 280 ml Balance 120 ml 485 ml 529 ml 120 ml Intake Oral 120 ml 720 ml 360 ml 120 ml IV Total 45 ml 169 ml Output Emesis 280 ml # Voids 0 4 2 1 # Bowel Movements 0 0 Result Diagram: 04/17/17194504/17/171945 Objective Remarks GENERAL: NAD, A&Ox3 HEAD: Normocephalic. NECK: Supple, trachea midline. No lymphadenopathy. EYES: No scleral icterus. No injection or drainage. CARDIOVASCULAR: Regular rate and rhythm without murmurs, gallops, or rubs. RESPIRATORY: Breath sounds equal bilaterally. No accessory muscle use. GASTROINTESTINAL: Abdomen soft, non-tender, nondistended. MUSCULOSKELETAL: No cyanosis, or edema. SKIN: Warm and dry. Scar at forehead. NEURO: No focal neurological deficitis. A/P Problem List: (1) CVA (cerebral vascular accident) ICD Code: I63.9 (2) HTN (hypertension) ICD Code: I10 (3) ARANZA (acute kidney injury) ICD Code: N17.9 (4) Headache ICD Code: R51 Assessment and Plan Assessment and plan 42-year-old female admitted secondary to acute CVA. Continued symptoms. Continue PT and OT. She may need home health rehabilitation at time of discharge. Continue aspirin daily. Acute CVA Headache Continue aspirin Neurology following MRI shows a small left centrum semiovale lacunar infarct and right frontal encephalomalacia Follow clinically for neurologic changes Patient has several family members with strokes at younger ages, so genetic predisposition may be present Acute kidney injury Resolved Discontinue IV hydration Follow renal function Hypertension Monitor blood pressures DVT prophylaxis SCDs Discharge planning Plan to discharge home after neurology clears patient. She will also need clearance by physical therapy and occupational therapy and may need home health therapy at discharge. Problem Qualifiers (1) CVA (cerebral vascular accident): (2) HTN (hypertension): Qualified Code: I10 - Essential hypertension Agus Regalado MD Apr 19, 2017 10:14 am
[2017-04-19] MEDS ORDERED: ZOLPIDEM TARTRATE 5 MG TAB PO PRN (13:45)
--- NOTE | 2017-04-19 14:20 | ECHRPT ---
Indication: cva/tia CONCLUSIONS Normal left ventricular size. There is assymetric septal hypertrophy. The left ventricular systolic function is hyperdynamic with an estimated ejection fraction in the ra nge of 65- 70%. No regional wall motion abnormalities are present. BP: / HR: Rhythm: MEASUREMENTS (Male / Female) Normal Values Technical Quality:Good 2D ECHO LV Diastolic Diameter PLAX 4.3 cm 4.2 - 5.9 / 3.9 - 5.3 cm LV Systolic Diameter PLAX 2.9 cm IVS Diastolic Thickness 1.3 cm 0.6 - 1.0 / 0.6 - 0.9 cm LVPW Diastolic Thickness 0.9 cm 0.6 - 1.0 / 0.6 - 0.9 cm LV Relative Wall Thickness 0.5 RV Internal Dim ED PLAX 2.2 cm M-MODE Aortic Root Diameter MM 3.0 cm LA Systolic Diameter MM 2.9 cm LA Ao Ratio MM 1.0 AV Cusp Separation MM 2.0 cm DOPPLER Mitral E Point Velocity 41.5 cm/s Mitral A Point Velocity 50.8 cm/s Mitral E to A Ratio 0.8 LV E' Lateral Velocity 9.8 cm/s Mitral E to LV E' Lateral Ratio 4.2 LV E' Septal Velocity 8.9 cm/s Mitral E to LV E' Septal Ratio 4.7 TR Peak Velocity 229.0 cm/s TR Peak Gradient 21.0 mmHg FINDINGS LEFT VENTRICLE Normal left ventricular size. There is assymetric septal hypertrophy. The left ventricular systolic function is hyperdynamic with an estimated ejection fraction in the ra nge of 65- 70%. No regional wall motion abnormalities are present. RIGHT VENTRICLE Normal right ventricular size and systolic function. LEFT ATRIUM The left atrial size is normal. RIGHT ATRIUM The right atrial size is normal. ATRIAL SEPTUM Normal atrial septal thickness without atrial level shunting by limited color doppler interrogation. AORTA The aortic root and proximal ascending aorta are normal in size on limited imaging. MITRAL VALVE Structurally normal mitral valve. Trace mitral valve regurgitation. AORTIC VALVE Trileaflet aortic valve. No aortic valve stenosis or regurgitation. TRICUSPID VALVE Structurally normal tricuspid valve. There is mild tricuspid valve regurgitation. PULMONARY VALVE The pulmonary valve is not well visualized. VESSELS The inferior vena cava is normal in size. PERICARDIUM No pericardial effusion. Deshawn Miller MD (Electronically Signed) Final Date:19 April 2017 14:19
[2017-04-19] MEDS: ONDANSETRON HCL 4 MG/2 ML VIAL IVP PRN (20:53)
[2017-04-20 00:45] VITALS: BP 146/93; PULSE 112; RESP 18; TEMP 96.4; O2SAT 97
[2017-04-20] MEDS: oxyCODONE/ACETAMINOPHEN 10 MG/325 MG TAB PO PRN ×6 (01:04→23:49)
[2017-04-20] MEDS ORDERED: diphenhydrAMINE HCL 25 MG CAP PO ONE (01:15)
[2017-04-20 04:40] VITALS: BP 121/69; PULSE 99; RESP 16; TEMP 97.4; O2SAT 92
[2017-04-20] MEDS: INSULIN ASPART SUPPLEMENTAL SCALE SQ SCH ×3 (05:00→15:56)
[2017-04-20 08:00] VITALS: BP 158/76; PULSE 103; RESP 18; TEMP 97.6; O2SAT 95
[2017-04-20] MEDS: PRAVASTATIN SOD 40 MG TAB PO SCH (08:59)
[2017-04-20] MEDS: ASPIRIN EC 81 MG TABEC PO SCH (08:59)
[2017-04-20] MEDS: DOCUSATE SODIUM 50 MG/SENNA 8.6 MG TAB PO SCH ×2 (09:00→19:46)
[2017-04-20] MEDS: SODIUM CHLORIDE 0.9% FLUSH 5 ML FLUSH IV FLUSH SCH (09:00)
[2017-04-20 10:03] LABS: RAPID PLASMA REAGIN SCREEN NON-REACTIVE (NON-REACTVE)
[2017-04-20 12:00] VITALS: BP 104/53; PULSE 101; RESP 18; TEMP 97.4; O2SAT 95
[2017-04-20 16:00] VITALS: BP 137/76; PULSE 97; RESP 18; TEMP 98.5; O2SAT 95
--- NOTE | 2017-04-20 17:47 | HHI.PR ---
Subjective Remarks Patient has attempted to stand. When she stands she feels very dizzy. She also feels that her vision has not improved. She's has concerns about her functional status. We discussed possible need for long-term facility with rehabilitation if the symptoms continue. PT report pending. She has problems sleeping at night. Objective Vital Signs Date Time Temp Pulse Resp B/P Pulse Ox O2 Delivery O2 Flow Rate FiO2 04/20/17 16:00 98.5 97 18 137/76 95 04/20/17 12:00 97.4 101 18 104/53 95 04/20/17 08:00 97.6 103 18 158/76 95 04/20/17 04:40 97.4 99 16 121/69 92 04/20/17 00:45 96.4 112 18 146/93 97 04/19/17 20:35 97.2 92 17 115/69 96 04/19/17 19:00 96 21 04/19/17 18:11 20 I/O 04/19/17 04/19/17 04/19/17 04/20/17 04/20/17 04/20/17 07:00 15:00 23:00 07:00 15:00 23:00 Intake Total 120 ml 960 ml 240 ml 240 ml 120 ml Balance 120 ml 960 ml 240 ml 240 ml 120 ml Intake Oral 120 ml 960 ml 240 ml 240 ml 120 ml # Voids 1 1 1 3 1 # Bowel Movements 1 0 0 Result Diagram: 04/17/17194504/17/171945 Objective Remarks GENERAL: NAD, A&Ox3 HEAD: Normocephalic. NECK: Supple, trachea midline. No lymphadenopathy. EYES: No scleral icterus. No injection or drainage. CARDIOVASCULAR: Regular rate and rhythm without murmurs, gallops, or rubs. RESPIRATORY: Breath sounds equal bilaterally. No accessory muscle use. GASTROINTESTINAL: Abdomen soft, non-tender, nondistended. MUSCULOSKELETAL: No cyanosis, or edema. SKIN: Warm and dry. Scar at forehead. NEURO: No focal neurological deficitis. A/P Problem List: (1) CVA (cerebral vascular accident) ICD Code: I63.9 (2) HTN (hypertension) ICD Code: I10 (3) ARANZA (acute kidney injury) ICD Code: N17.9 (4) Headache ICD Code: R51 Assessment and Plan Assessment and plan 42-year-old female admitted secondary to acute CVA. Continued symptoms. Continue PT and OT. She may need home health rehabilitation at time of discharge. Continue aspirin. Increase Ambien to 10 mg daily at bedtime, which is her baseline treatment. Acute CVA Headache Continue aspirin Neurology following MRI shows a small left centrum semiovale lacunar infarct and right frontal encephalomalacia Follow clinically for neurologic changes Patient has several family members with strokes at younger ages, so genetic predisposition may be present Acute kidney injury Resolved Discontinue IV hydration Follow renal function Hypertension Monitor blood pressures DVT prophylaxis SCDs Discharge planning Plan to discharge home after neurology clears patient. She will also need clearance by physical therapy and occupational therapy and may need home health therapy at discharge. Problem Qualifiers (1) CVA (cerebral vascular accident): (2) HTN (hypertension): Qualified Code: I10 - Essential hypertension Agus Regalado MD Apr 20, 2017 17:47
[2017-04-20 20:00] VITALS: BP 137/67; PULSE 110; RESP 20; TEMP 97.7; O2SAT 97
[2017-04-20] MEDS: ZOLPIDEM TARTRATE 10 MG TAB PO PRN (21:24)
[2017-04-21] VITALS (7 sets, daily range): BP systolic 108–142; BP diastolic 45–80; PULSE 90–100; RESP 18–22; TEMP 96.9–98; O2SAT 95–99
[2017-04-21] MEDS: oxyCODONE/ACETAMINOPHEN 10 MG/325 MG TAB PO PRN ×4 (03:49→18:22)
[2017-04-21] MEDS: DOCUSATE SODIUM 50 MG/SENNA 8.6 MG TAB PO SCH ×2 (08:43→20:38)
[2017-04-21] MEDS: PRAVASTATIN SOD 40 MG TAB PO SCH (08:43)
[2017-04-21] MEDS: ASPIRIN EC 81 MG TABEC PO SCH (08:43)
[2017-04-21] MEDS ORDERED: ACETAMIN 325 MG/BUTALBITAL 50 MG/CAFFEINE 40 MG TAB PO PRN (14:45)
--- NOTE | 2017-04-21 16:19 | PD.CONS ---
[facility] Service Rehabilitation Medicine Consult Requested By Terry Mckeon MD Reason for Consult Comprehensive rehabilitation evaluation. Primary Care Physician Unknown History of Present Illness Eden Mckeon is a 42 year old right hand dominant female admitted to [facility] 04/16/17 with headache and right sided weakness and tingling. Head CT showed no acute changes;postsurgical changes with right frontal encephalomalacia. Brain MRI showed tiny lacunar infarct in the left centrum semiovale. Review of Systems Constitutional: COMPLAINS OF: Fatigue Eyes: COMPLAINS OF: Blurred vision, DENIES: Diplopia Ears, nose, mouth, throat: DENIES: Throat pain Respiratory: DENIES: Shortness of breath Cardiovascular: DENIES: Chest pain Gastrointestinal: DENIES: Abdominal pain Genitourinary: DENIES: Urinary incontinence Musculoskeletal: DENIES: Back pain Integumentary: DENIES: Rash Hematologic/lymphatic: DENIES: Bruising Immunologic/allergic: DENIES: Urticaria Neurologic: COMPLAINS OF: Headache, Localized weakness, DENIES: Paresthesias, Speech Problems Psychiatric: DENIES: Confusion Past Family Social History Allergies: Coded Allergies: Codeine (Verified Allergy, Mild, EDEMA, 01/30/07) Ultram (Verified Allergy, Mild, "MY EYES ROLL BACK", 07/06/07) Past Medical History Hyperlipidemia HTN Past Surgical History Left AKA Current Medications Current Medications Medications (Trade) Dose Ordered Sig/Rebeca Route Start Time Stop Time Status Last Admin (Zofran Inj) 4 mg Q6H PRN IVP 04/17/17 03:00 04/19/17 20:53 (Tylenol) 650 mg Q6H PRN PO 04/17/17 03:00 (Natasha-Colace) 1 tab BID PO 04/17/17 09:00 04/19/17 08:36 (Milk Of Magnesia Liq) 30 ml Q12H PRN PO 04/17/17 03:00 (Senokot) 17.2 mg Q12H PRN PO 04/17/17 03:00 (Dulcolax Supp) 10 mg DAILY PRN RECTAL 04/17/17 03:00 (Lactulose Liq) 30 ml DAILY PRN PO 04/17/17 03:00 (Ecotrin Ec) 81 mg DAILY PO 04/17/17 09:00 04/21/17 08:43 (Pravachol) 40 mg DAILY PO 04/17/17 09:00 04/21/17 08:43 (Percocet 10-325 Mg) 1 tab Q4H PRN PO 04/17/17 04:30 04/21/17 12:46 (Vasotec Inj) 1.25 mg Q4H PRN IV 04/17/17 10:45 (Ambien) 10 mg HS PRN PO 04/20/17 21:00 04/20/17 21:24 (Fioricet 325-50-40) 1 tab Q6H PRN PO 04/21/17 14:45 Family History Mother and Father : [place] Social History Lives with boyfriend in [place], [place]. Prior to admission using wheelchair for mobility. Has been referred for prosthesis. Exam I&O / VS 04/20/17 04/20/17 04/21/17 15:00 23:00 07:00 Intake Total 120 ml 720 ml 920 ml Balance 120 ml 720 ml 920 ml Intake Oral 120 ml 720 ml 920 ml # Voids 1 3 Vital Signs Date Time Temp Pulse Resp B/P Pulse Ox O2 Delivery O2 Flow Rate FiO2 04/21/17 12:00 96.9 96 18 142/60 97 04/21/17 08:00 96.9 91 18 112/45 95 04/21/17 04:00 97.5 94 19 130/80 96 04/21/17 00:00 98.0 100 22 108/58 96 04/20/17 20:00 97.7 110 20 137/67 97 General: No acute distress Respiratory: Lungs CTA, Non-labored respirations, BS equal Gastrointestinal: Positive Bowel Sounds, Non-Distended, Non-Tender Cardiovascular: Normal rate, Regular Rhythm Musculoskeletal: ROM (Increased spasticity left UE and ROM for wrist extension to neutral; left elbow -20 degrees full extension) Orientation: oriented to Self, oriented to Place, oriented to Time, oriented to Situation Neurologic: Pupils (PERRLA), EOM (Left gaze nystagmus), Speech (No word finding difficulties) Motor: Right Upper Extremity (5/5), Left Upper Extremity (3+/5 in synergy), Right Lower Extremity (4/5), Left Lower Extremity (Left AKA; hip flexion 3/5) Sensory Grossly intact to light touch DTRs: Normal (Right UE and LE) Assessment and Plan Diagnosis: (1) CVA (cerebral vascular accident) Laterality of affected vessel: left (2) History of left above knee amputation Assessment 1. Left lacunar infarct centrum semiovale 2. Left AKA 3. HTN 4. Hyperlipidemia Plan 1. PT mobilizing and SBA transfers and up to bedside chair for 30 minutes. Continue to mobilize with assistance 2. OT for ADL's and min CG for UE dressing. Continue to maximize independence 3, ST has evaluated swallow and regular diet 4. Fall precautions 5. Case management is working on discharge planning and referral has been made for SNF care 6. Will follow while hospitalized and at discharge Thank you for this consult. Kelle Valdez MD Apr 21, 2017 16:19
--- NOTE | 2017-04-21 16:25 | HHI.PR ---
Subjective Remarks Patient still not functioning well with physical therapy. Insurance companies regarding contacted to attempt to place patient in [facility]. She has a recently amputated left lower leg which is contributory in this combined with her dizziness, headache, and blurred vision from the recent CVA is making her ability to function, by both moving into her wheelchair and by mobilizing her wheelchair, difficult. Objective Vital Signs Date Time Temp Pulse Resp B/P Pulse Ox O2 Delivery O2 Flow Rate FiO2 04/21/17 12:00 96.9 96 18 142/60 97 04/21/17 08:00 96.9 91 18 112/45 95 04/21/17 04:00 97.5 94 19 130/80 96 04/21/17 00:00 98.0 100 22 108/58 96 04/20/17 20:00 97.7 110 20 137/67 97 I/O 04/20/17 04/20/17 04/20/17 04/21/17 04/21/17 04/21/17 06:59 14:59 22:59 06:59 14:59 22:59 Intake Total 240 ml 120 ml 720 ml 920 ml Balance 240 ml 120 ml 720 ml 920 ml Intake Oral 240 ml 120 ml 720 ml 920 ml # Voids 3 1 3 # Bowel Movements 0 Result Diagram: 04/17/17194504/17/171945 Objective Remarks GENERAL: NAD, A&Ox3 HEAD: Normocephalic. NECK: Supple, trachea midline. No lymphadenopathy. EYES: No scleral icterus. No injection or drainage. CARDIOVASCULAR: Regular rate and rhythm without murmurs, gallops, or rubs. RESPIRATORY: Breath sounds equal bilaterally. No accessory muscle use. GASTROINTESTINAL: Abdomen soft, non-tender, nondistended. MUSCULOSKELETAL: No cyanosis, or edema. SKIN: Warm and dry. Scar at forehead. NEURO: No focal neurological deficitis. A/P Problem List: (1) CVA (cerebral vascular accident) ICD Code: I63.9 (2) HTN (hypertension) ICD Code: I10 (3) ARANZA (acute kidney injury) ICD Code: N17.9 (4) Headache ICD Code: R51 Assessment and Plan Assessment and plan 42-year-old female admitted secondary to acute CVA. Continued symptoms. Continue PT and OT. Seeking placement in [facility]. Acute CVA Headache Continue aspirin Neurology following MRI shows a small left centrum semiovale lacunar infarct and right frontal encephalomalacia Follow clinically for neurologic changes Patient has several family members with strokes at younger ages, so genetic predisposition may be present Acute kidney injury Resolved Discontinue IV hydration Follow renal function Hypertension Monitor blood pressures DVT prophylaxis SCDs Discharge planning Possible discharge to [facility] tomorrow. Problem Qualifiers (1) CVA (cerebral vascular accident): (2) HTN (hypertension): Qualified Code: I10 - Essential hypertension Agus Regalado MD Apr 21, 2017 4:25 pm
[2017-04-21] MEDS: ZOLPIDEM TARTRATE 10 MG TAB PO PRN (20:37)
[2017-04-22] VITALS: BP 108/50; PULSE 98; RESP 17; TEMP 97.7; O2SAT 95
[2017-04-22 04:00] VITALS: BP 118/58; PULSE 96; RESP 20; TEMP 97.9; O2SAT 95
[2017-04-22] MEDS: oxyCODONE/ACETAMINOPHEN 10 MG/325 MG TAB PO PRN ×2 (05:37→13:01)
[2017-04-22 08:00] VITALS: BP 127/60; PULSE 91; RESP 17; TEMP 96.9; O2SAT 94
[2017-04-22 11:51] LABS: THROMBIN TIME FOR LA ND sec (13-19)
[2017-04-22 12:00] VITALS: BP 148/66; PULSE 86; RESP 17; TEMP 97.3; O2SAT 94
[2017-04-22] MEDS ORDERED: BUTATAB6 PO (12:13)
[2017-04-22] MEDS ORDERED: PRAV40TA PO (12:13)
[2017-04-22] MEDS ORDERED: OXYC1TAB36 PO (12:13)
[2017-04-22] MEDS ORDERED: SENN1TAB PO (12:13)
--- NOTE | 2017-04-22 12:13 | HHI.DCPOC ---
Discharge Care Plan Diagnosis: (1) CVA (cerebral vascular accident) Your Health Problems Are: Difficulty with ADL Exercise Tolerance Goals to Promote Your Health * To prevent worsening of your condition and complications * To maintain your health at the optimal level Directions to Meet Your Goals Take your medications as prescribed Follow your dietary instruction Follow activity as directed Keep your appointments as scheduled Take your immunizations and boosters as scheduled If your symptoms worsen call your PCP, if no PCP go to Urgent Care Center or Emergency Room Smoking is Dangerous to Your Health. Avoid second hand smoke Call the 24-hour hour crisis hotline for domestic abuse at Stewart Low MD Apr 22, 2017 12:13
--- NOTE | 2017-04-22 12:27 | HHI.DS ---
Discharge Summary Admission Date Apr 17, 2017 at 10:35 Discharge Date: Apr 22, 2017 Admitting Diagnosis CVA vs TIA (1) HTN (hypertension) ICD Code: I10 Diagnosis: Principal (2) ARANZA (acute kidney injury) ICD Code: N17.9 Diagnosis: Principal (3) CVA (cerebral vascular accident) ICD Code: I63.9 Diagnosis: Principal Procedures none Brief History - From Admission This 42-year-old female with PMH of HTN, Hyperlipidemia, Congenital Malformation and Chronic Left-Sided Hemiparesis who presented to the ER w/ complaints of severe headache in addition to right-sided numbness/tingling starting last night at approx 22:00. Reports episode of slurred speech, however now resolved. Denies fever, chills, nausea/vomiting or photophobia. On arrival, BP 129/75, HR 68, O2 sat 100% on RA, Afebrile. CBC essentially unremarkable. Creatinine 1.08, previously 0.85 on 07/23/16. CT Head with no acute findings, postsurgical changes with right frontal encephalomalacia. CXR with no acute findings. Imaging Last Impressions Carotid Artery Ultrasound 04/17/17 0000 Signed Impressions: Service Date/Time: Monday, April 17, 2017 11:06 - CONCLUSION: 1. No significant atherosclerotic disease or stenosis within the internal carotid arteries bilaterally. 2. There is antegrade flow in both vertebral arteries. Alli Sanchez MD Brain MRI 04/17/17 0000 Signed Impressions: Service Date/Time: Monday, April 17, 2017 09:23 - CONCLUSION: 1. Tiny acute lacunar infarction involving the centrum semiovale on the left. 2. Encephalomalacia involving the right frontal lobe. Pa Lopez Jr., MD Head CT 04/16/172332 Signed Impressions: Service Date/Time: April 23:52 - CONCLUSION: 1. No evidence of acute intracranial pathology. No masses are identified. 2. Postsurgical changes with right frontal encephalomalacia Lenard Warner MD Chest X-Ray 04/16/17 0989 Signed Impressions: Service Date/Time: Monday, April 17, 2017 00:05 - CONCLUSION: 1. No acute cardiopulmonary disease. Lenard Warner MD PE at Discharge GENERAL: Well-developed well-nourished. In no acute distress. SKIN: Warm and dry. HEENT: Normocephalic. Pupils equal and round. Mucous membranes pink and moist. CARDIOVASCULAR: Regular rate and rhythm. No murmur appreciated. RESPIRATORY: No accessory muscle use. Clear to auscultation. Breath sounds equal bilaterally. GASTROINTESTINAL: Abdomen soft, non-tender, nondistended. Bowel sounds x4. MUSCULOSKELETAL: Left BKA. No clubbing or cyanosis. No edema. NEUROLOGICAL: Awake and alert. Chronic left upper extremity and left lower extremity weakness per patient. Sensation intact and symmetric bilaterally in the upper extremities. PSYCHIATRIC: Appropriate mood and affect; insight and judgment normal. Hospital Course 42-year-old female admitted secondary to acute CVA. She has been stable on aspirin and statin. A1c 5.5. She has been evaluated by neurology, rehabilitation M.D. PT and OT. She was also treated for acute kidney injury resolved with IV hydration Pt Condition on Discharge: Stable Discharge Disposition: Discharge to SNF Discharge Time: > 30 minutes Discharge Instructions DIET: Follow Instructions for: Heart Healthy Diet Activities you can perform: Regular-No Restrictions Activities to Avoid: Driving Follow up Referrals: Neurology - 1 Week PCP Follow-up - 1 Week Physical Medicine & Rehab - 2 Months with Kelle Valdez MD New Medications: Aspirin DR (Adult Aspirin EC Low Strength) 81 Mg Tabec 81 MG PO DAILY Blood Clot Prevention #30 TAB Ncrflibijd-Phsimcnbiechx-Mrizitih (Vwuuzlyhwt-Hcamfgzsxctab-Xbbkquxh) 50-325-40 Mg Tab 1 TAB PO Q6H PRN MIGRAINE HEADACHE #12 TAB Oxycodone-Acetaminophen (Oxycodone-Acetaminophen) 10-325 mg Tab 1 TAB PO Q4H PRN PAIN 3-10 #20 TAB Pravastatin (Pravachol) 40 Mg Tab 40 MG PO DAILY Cholesterol Management #30 TAB Sennosides-Docusate Sodium (Senna Plus 8.6-50 mg) 1 Tab Tab 1 TAB PO BID Prevent Constipation #60 TAB Discontinued Medications: Oxycodone-Acetaminophen (Percocet) 10-325 mg Tab 1 TAB PO Q4H PRN PAIN Ref 0 TAB Stewart Low MD Apr 22, 2017 12:27
[2017-04-22] MEDS: DOCUSATE SODIUM 50 MG/SENNA 8.6 MG TAB PO SCH (13:00)
[2017-04-22] MEDS: PRAVASTATIN SOD 40 MG TAB PO SCH (13:00)
[2017-04-22] MEDS: ASPIRIN EC 81 MG TABEC PO SCH (13:00)
== END 2017-04-22 16:15 | DRG 65 ==
LOC: NEPE 21:15 → NEDA 04-17 03:22 → NEPGCP 04-17 04:32 → OBSVTOIN 04-17 10:35 → N06B 04-18 00:07
PROVIDERS: ADMIT Internal Medicine; ATTEND Internal Medicine
DX: I63.9 Cerebral infarction, unspecified (principal); N17.9 Acute kidney failure, unspecified; G93.89 Other specified disorders of brain; G81.91 Hemiplegia, unspecified affecting right dominant side; G81.94 Hemiplegia, unspecified affecting left nondominant side; I10 Essential (primary) hypertension; R47.81 Slurred speech; Z86.14 Personal history of Methicillin resistant Staphylococcus aureus infection; E78.00 Pure hypercholesterolemia, unspecified; E78.5 Hyperlipidemia, unspecified; Q79.9 Congenital malformation of musculoskeletal system, unspecified; H53.8 Other visual disturbances; Z82.3 Family history of stroke; Z89.512 Acquired absence of left leg below knee
CPT/HCPCS: 70450; 70551; 71010; 76937; 80053; 80061; 81241; 82948; 83036; 84702; 85025; 85303; 85306; 85613; 85730; 86147; 86592; 87641; 93005; 93306; 93880; J1885; J2060; J2405; J7030

== ENCOUNTER 2017-08-31 20:45 | Inpatient (IN) | payer OTHER, MEDICARE ==
[~2017-08-31 20:45] MED LIST changes: -AMOX500T PO; +ASPI1TAB56 PO; +BUTATAB6 PO; -DICL-86 PO; +DULO1CAP2 PO; +GABA600T PO; +NEUR300C PO; +OXYC1TAB36 PO; +PRAV40TA PO; +QUET1TAB7 PO; +SENN1TAB PO; +TRAZ50TA12 PO
--- NOTE | 2017-08-31 22:24 | PD ---
HPI Chief Complaint: Psychiatric Symptoms Time Seen by Provider: 21:56 Travel History International Travel<30 days: No Contact w/Intl Traveler<30days: No Traveled to known affect area: No History of Present Illness HPI 42-year-old white female presents to emergency department as a transfer from [facility] under a Rojo act by the ER physician. The patient underwent to the ER and advised them that she was feeling increasingly depressed and having suicidal thoughts. She had contemplated cutting herself. The patient was medically cleared by the ER physician and placed under Rojo act. The patient was accepted by the psych attending. The patient here in the ER complains only of some mild nausea but no vomiting. She does admit to being depressed. She denies any active suicidal or homicidal ideation. She states that she is tired of being a burden. She recently had an amputation above the knee after a infected knee replacement with MRSA. Since then the patient has become increasingly depressed. The patient has been here at [facility] in the psychiatric unit for similar presentation. The patient denies any other medical bites at this time. PFSH Past Medical History Arthritis: Yes Blood Disorders: No Anxiety: Yes Depression: Yes Heart Rhythm Problems: No Cancer: No Cardiovascular Problems: Yes High Cholesterol: Yes Chemotherapy: No Chest Pain: No Congestive Heart Failure: No Cerebrovascular Accident: Yes (TIA) Diminished Hearing: No Endocrine: No Gastrointestinal Disorders: Yes (HEARTBURN ) Genitourinary: No Hypertension: Yes Immune Disorder: No Musculoskeletal: Yes Neurologic: Yes Psychiatric: Yes Reproductive: No Respiratory: No Migraines: Yes Radiation Therapy: No Seizures: No Tubal Ligation: Yes Past Surgical History Abdominal Surgery: No Cardiac Surgery: No Section: Yes (X2) Ear Surgery: No Endocrine Surgery: No Eye Surgery: No Genitourinary Surgery: No Gynecologic Surgery: Yes () Neurologic Surgery: Yes (BRAIN SURGERY AT ) Oral Surgery: No Thoracic Surgery: No Other Surgery: Yes (HEAD SURG AT WHICH CAUSED LEFT SIDE PARAYLISIS) Social History Alcohol Use: Yes (occ) Tobacco Use: No Substance Use: No Allergies-Medications (Allergen,Severity, Reaction): Coded Allergies: codeine (Unverified Allergy, Mild, EDEMA, 04/28/17) tramadol (Unverified Allergy, Mild, "MY EYES ROLL BACK", 04/28/17) sulfamethoxazole (Verified Allergy, Unknown, 05/20/17) trimethoprim (Verified Allergy, Unknown, 05/20/17) Reported Meds & Prescriptions Reported Meds & Active Scripts Active Quetiapine (Quetiapine Fumarate) 25 Mg Tab 50 Mg PO HS Duloxetine DR (Duloxetine HCl) 30 Mg Capdr 90 Mg PO DAILY Neurontin (Gabapentin) 300 Mg Cap 600 Mg PO BID Pravachol (Pravastatin) 40 Mg Tab 40 Mg PO DAILY Adult Aspirin EC Low Strength (Aspirin) 81 Mg Tabec 81 Mg PO DAILY Trazodone (Trazodone HCl) 50 Mg Tab 50 Mg PO HS PRN Duloxetine DR (Duloxetine HCl) 30 Mg Capdr 30 Mg PO DAILY Senna Plus 8.6-50 mg (Sennosides-Docusate Sodium) 1 Tab Tab 1 Tab PO BID Pravachol (Pravastatin) 40 Mg Tab 40 Mg PO DAILY Oxycodone-Acetaminophen 10-325 mg Tab 1 Tab PO Q4H PRN Bpxzigeajo-Juwdiciollsll-Twmylwfe 50-325-40 Mg Tab 1 Tab PO Q6H PRN Adult Aspirin EC Low Strength (Aspirin) 81 Mg Tabec 81 Mg PO DAILY Reported Gabapentin 600 Mg Tab 600 Mg PO BID Review of Systems General / Constitutional: No: Fever Eyes: No: Visual changes HENT: No: Headaches Cardiovascular: No: Chest Pain or Discomfort Respiratory: No: Shortness of Breath Gastrointestinal: Positive: Nausea, No: Abdominal Pain Genitourinary: No: Dysuria Musculoskeletal: Positive: Arthralgias, Limited ROM, No: Pain Skin: No Rash Neurologic: No: Weakness Psychiatric: Positive: Depression, Mood Disorder, No: Anxiety, Suicidal Ideations, Disorder of Thought, Substance Abuse, Homicidal Ideation Endocrine: No: Polydipsia Hematologic/Lymphatic: No: Easy Bruising Physical Exam Narrative GENERAL: Morbidly obese, well-developed patient. SKIN: Warm and dry. HEAD: Patient has a large scar on the scalp into the forehead consistent with prior trauma. She has hypertrophied skin of the forehead. This is all chronic and not acute. EYES: No scleral icterus. No injection or drainage. ENT: No nasal drainage noted. Mucous membranes pink. Airway patent. NECK: Supple, trachea midline. Moves head freely without obvious discomfort. CARDIOVASCULAR: Regular rate and rhythm without murmurs, gallops, or rubs. RESPIRATORY: Breath sounds equal bilaterally. No accessory muscle use. GASTROINTESTINAL: Abdomen soft, non-tender, nondistended. EXTREMITIES: No cyanosis or edema. Above the knee amputation on the left side. BACK: Nontender without obvious deformity. No CVA tenderness. NEURO: Patient is alert and oriented. no sensorimotor deficits. Nonfocal. Normal speech. PSYCH: No delusions. No auditory or visual hallucinations. Data Data Orders Orders Psych Screen (08/31/17 21:12) MDM Medical Decision Making Medical Screen Exam Complete: Yes Emergency Medical Condition: Yes Medical Record Reviewed: Yes Interpretation(s) I reviewed the laboratory testing from [facility] Differential Diagnosis MDM: High Differential diagnoses: Schizophrenia, schizoaffective disorder, bipolar, anxiety, depression, adjustment reaction, mood disorder NOS, ODD, depressive disorder NOS, dementia, dementia with agitation, psychosis NOS, substance induced mood disorder, DMDD, Asperger syndrome, infection,electrolyte abnormality, malingering. Narrative Course Mental health screening discussed with the patient. Psychiatric screen ordered. This is medical clearance for psychiatric admission Diagnosis Primary Impression: Medical clearance for psychiatric admission Condition: Stable Lyndon Dumont Aug 31, 2017 22:24
[2017-08-31] MEDS ORDERED: LOSA100T PO (22:39)
[2017-08-31] MEDS ORDERED: QUET150XR PO (22:39)
[2017-08-31 22:54] VITALS: BP 161/81; PULSE 97; RESP 18; O2SAT 97
[2017-08-31] MEDS ORDERED: ACETAMINOPHEN 325 MG TAB PO PRN (23:30)
[2017-08-31] MEDS ORDERED: LORazepam 2 MG/ML VIAL IM PRN (23:30)
[2017-08-31] MEDS ORDERED: ALUMINUM/MAGNESIUM/SIMETH 30 ML CUP PO PRN (23:30)
[2017-08-31] MEDS ORDERED: MAGNESIUM HYDROXIDE SUSP 30 ML CUP PO PRN (23:30)
[2017-08-31] MEDS ORDERED: LORazepam 1 MG TAB PO PRN (23:30)
[2017-08-31] MEDS ORDERED: diphenhydrAMINE HCL 50 MG/ML VIAL - HS PRN IM (23:30)
[2017-08-31] MEDS ORDERED: DOCUSATE SODIUM 50 MG/SENNA 8.6 MG TAB PO PRN (23:30)
[2017-09-01] MEDS: diphenhydrAMINE HCL 50 MG CAP - HS PRN PO (01:25)
[2017-09-01 06:17] VITALS: BP 144/71; PULSE 101; RESP 20; TEMP 98.1; O2SAT 98
[2017-09-01] MEDS ORDERED: GABAPENTIN 300 MG CAP PO SCH (09:00)
[2017-09-01] MEDS: PRAVASTATIN SOD 40 MG TAB PO SCH (09:50)
[2017-09-01] MEDS: LOSARTAN 50 MG TAB PO SCH (09:50)
[2017-09-01] MEDS: ASPIRIN EC 81 MG TABEC PO SCH (09:51)
--- NOTE | 2017-09-01 10:44 | PD.TTN ---
Patient Problems 1. Discharge planning 2. Medication compliance 3. Knowledge deficit 4. Lack of coping skills Progress Toward Goals Provider Present: Dr. Mary Garcia Provider Input: Dr. Garcia's treatment team met to discuss patient's treatment plan, medication, and discharge. Patient is new to unit needs to accessed. Nurse(s) Input: Patient's nurse Marixa reports patient continues to report she is suicidal, depressed, medication compliant Psychiatric Counselors Present: Shreya Up [facility] Psych Therapist Input: Patient is new to this counselor. Will access patient for treatment plan and goals. Group Spec/RT/OT/FIGUEREDO Present: Neo Hicks OT Group Spec/RT/OT/FIGUEREDO Input: Patient is new to unit. Shreya Up [facility], [id number] Sep 01, 2017 10:44
--- NOTE | 2017-09-01 10:53 | MH ---
cc: DIONY GARCIA DATE OF ADMISSION 08/31/2017 ADMITTING DIAGNOSIS 1. Major depressive disorder, recurrent, severe without psychotic features, F33.2. 2. Cluster-B personality traits. LEGAL STATUS The patient is presently capacitated to consent for admission and for medications/treatment. Voluntary status. HISTORY OF PRESENT ILLNESS Ms. Mckeon is a 42-year-old female with a reported history of depression who presents in transfer from [facility] under a Rojo Act. Documentation from [facility] reviewed. The patient presented there complaining of suicidal ideation and depression. The ED provider note indicates that the patient was planning to cut her wrists but this suicide attempt was apparently aborted before she could do so. The patient was placed under Rojo Act by the ED provider and sent here to [facility] for further management. Reviewing the electronic medical record, I note that the patient was admitted for much of the month of May under Dr. Macdonald with a discharge diagnosis of adjustment disorder with depressed mood. The patient was noted in Dr. Macdonald's discharge summary to be somewhat demanding, manipulative and drug-seeking. The patient is seen and examined with counselor. Chart reviewed. Case discussed with nursing staff. On my examination today, the patient presents as dysphoric. She reports that she began to contemplate suicide the day before yesterday and yesterday morning put this plan into effect by trying to cut herself with a knife. She says that she was in the kitchen at the time and her boyfriend came in and took the knife from her before she could cut herself. She endorses ongoing suicidal ideation with plan to overdose on "anything." She says that she would overdose on medications because this would not be "a painful ." She does endorse ongoing thoughts of hurting herself here on the inpatient unit and declines to contract for safety at this time and so will be moved to the high acuity unit for closer monitoring. The patient endorses low mood, hopeless feelings, worthless feelings. She is somewhat anhedonic. She complains of feeling quite anxious. I can elicit no psychotic symptoms. No audiovisual hallucinations. No delusional material. There are no hypomanic or manic symptoms presently, nor can I elicit any history of same. 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 She also has right knee pain and is fearful that she will require a right knee replacement as it was a knee replacement that occasioned the necessity for the amputation in the first place. She has also suffered a stroke. She is also unhappy because her family seems unconcerned with her medical conditions and distress. Cluster B personality traits are noted. The remainder of the psychiatric ROS is negative. The patient articulates no physical complaints at this time. PAST PSYCHIATRIC HISTORY The patient reports a history of depression. She follows with Dr. Fairchild and last saw him the first week of July. She has had two visits with Dr. Fairchild. She says that Dr. Fairchild's pharmacologic plan is to taper her off the Cymbalta and start her on Prozac. She says that she finished the Cymbalta taper and was off of antidepressants for three days prior to presentation here. She says that Dr. Fairchild was not planning on starting her on the Prozac until September. She also takes Seroquel 150 mg at bedtime but she does not like this agent and she says it makes her legs restless. She says that she did better with Ambien. She denies a history of previous suicide attempts. FAMILY HISTORY The patient reports that her mother has depression. She denies a family history of suicide. She does endorse extensive family history of substance use disorder. CHEMICAL DEPENDENCY HISTORY The patient reports social use of alcohol. She smokes cannabis occasionally. She denies any history of pain pill over use. I have reviewed the patient's controlled substances database report. I note that the patient last filled a Percocet 5/325 mg prescription on August 12 with a quantity of 60 for a 30-day supply, or about 2 tablets a day. Before that the patient was on Percocet 10/325 mg, 60 tablets for a 20-day supply at the beginning of July, and both of these scripts are from a Dr. Vin Lynn. SOCIAL HISTORY The patient reports that she lives with her boyfriend. The boyfriend reportedly had to quit his job to become the patient's caregiver and has suffered a back injury while caring for the patient. They have been in a relationship for 25 years. The patient has a daughter who was recently jailed on a gun charge. She also has another child whom she gave up for adoption. She is high school educated. 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 She denies any history. Denies any legal history and particularly denies any history of violent crime. She denies any access to guns or firearms. She is not particularly judaism. She denies any history of abuse or mistreatment. PAST MEDICAL HISTORY History of CVA, left leg amputation and right knee pain. See electronic medical record. MEDICATIONS Home medications include the Cymbalta that the patient has been tapering off of and is now discontinued as well as the Seroquel at bedtime. The patient also takes aspirin 81 mg daily, statin, gabapentin 600 mg twice a day and Cozaar 100 mg daily. ALLERGIES 1. CODEINE. 2. SULFAMETHOXAZOLE. 3. TRAMADOL. 4. TRIMETHOPRIM. REVIEW OF SYSTEMS Except as in HPI, this is negative. PHYSICAL EXAMINATION Physical examination was completed by the ED provider at an outside hospital. On my examination today, the patient appears to be in no acute physical distress. Left leg amputation is noted and the patient moves around the unit with a wheelchair. No motor abnormality is noted. No signs of withdrawal noted. LABORATORY The labs from the outside hospital were reviewed: CBC reveals mild leukocytosis with a white blood cell count of 12.5. Hemoglobin and hematocrit are unremarkable. Platelet count was within normal limits. CMP is unremarkable except for mild hyperglycemia at 103 in a nonfasting sample. Urine toxicology positive for cannabinoids. Alcohol level undetectable. Tylenol and salicylate level undetectable. MENTAL STATUS EXAMINATION The patient is in hospital attire. She is somewhat disheveled but maintaining basic hygiene. She is awake, alert and oriented x4. No evidence of delirium. No motor abnormalities noted. Speech is somewhat slow but otherwise within normal limits for tone and volume. Language and fund of knowledge average. Focus and concentration intact. Memory grossly intact on clinical exam. Mood is dysphoric and affect is restricted and consistent with stated mood. Thought process linear. No loosening of associations. No delusional material elicited. Denies audiovisual hallucinations and does not appear internally stimulated. Endorses ongoing suicidal ideation with plan to overdose. She does not contract for safety on the inpatient unit and will be transferred to the high acuity unit. She denies any homicidal ideation. Insight and judgment are presently fair to poor at best. ASSESSMENT AND PLAN This is a 42-year-old female with psychiatric history as detailed above who presents in transfer from outside hospital under Rojo Act. The patient reports ongoing depressive symptoms in the setting of multiple psychosocial and medical stressors. The patient has apparently recently been un-covered by an antidepressant as her Cymbalta was being tapered in anticipation of initiating Prozac. It is my concern that this period of tapering and discontinuation of antidepressant may have been a precipitating factor for the patient's current aborted suicide attempt. Although I am certainly cognizant of the potential risks of serotonin syndrome with co-administration of antidepressants, I think the risk/benefit profile supports initiating such an agent now. I have discussed the risks, benefits and alternatives of initiating the planned Prozac medication with the patient in some detail, and the patient is agreeable to such a trial now. The patient requires psychiatric hospitalization at this time for safety, observation and stabilization. Admit inpatient. Voluntary status. Transfer to high acuity unit. Initiate Prozac 20 mg daily for mood. R/B/A d/w patient. I will continue the patient's Seroquel at bedtime for now but will additionally try to titrate her nighttime dose of gabapentin in order to manage her reported difficulty sleeping and restless legs with Seroquel. We might consider tapering and discontinuing the Seroquel if this side effect persists. I will continue the patient's aspirin, statin and Cozaar as ordered. Atarax as needed for anxiety, Benadryl as needed for sleep. Check TSH, CBC, iron studies. Vitals every shift. Counselor to see and obtain collateral. Disposition planning. Estimated length of stay: 5-7 days. Diony Garcia DC/JORDYN /10:03 AM /10:21 AM SUMMER
[2017-09-01] MEDS: hydrOXYzine HCL 50 MG TAB PO PRN ×2 (11:58→12:00)
[2017-09-01] MEDS: FLUoxetine HCL 20 MG CAP PO SCH (14:46)
[2017-09-01 15:21] LABS: CHOLESTEROL 199 MG/DL (120-200); TRIGLYCERIDES 47 MG/DL (42-150)
[2017-09-01 15:24] LABS: CHOLESTEROL/ HDL RATIO 4.02 RATIO; HDL CHOLESTEROL 49.4 MG/DL (40.0-60.0); LDL CHOLESTEROL 140 MG/DL (0-99)
--- NOTE | 2017-09-01 16:30 | PD.CONS ---
HPI Service [facility] Hospitalists Consult Requested By Dr. Yap Reason for Consult To assist with pain management Primary Care Physician Elsa Toribio MD Diagnoses: (1) TIA (transient ischemic attack) (2) HTN (hypertension) (3) History of left above knee amputation (4) Major depressive disorder, recurrent severe without psychotic features History of Present Illness 42-year-old female with PMH of TIA, HTN, HLD, GERD, left AKA following MRSA infection after knee surgery, adjustment mood disorder, anxiety, and depression. Patient originally presented to [facility] under a Rojo Act due to reports of suicide ideation by cutting her wrist. She was transported to [facility] for further evaluation and management, medical team consulted to aid in the management of her chronic pain. Patient states that she continues to have left leg pain along with right knee pain. She reports that she was told that her right knee is now "bone on bone" and the now that she is in a wheel chair this has increased her pain of right knee. She is unable to wheel herself using her arms due to malformation of her left arm. She report that she was previously taking Percocet 10mg for pain. She also complaints to me of leg spasms and feels that these have been wore for the past three days. She denies fever, chills, nausea, vomiting, diarrhea, SOB, or chest pain. She is requesting her pain medications be restarted as the Tylenol she has received has not helped with her pain. She does not repot any other concerns at this moment. Review of Systems Except as stated in HPI: all other systems reviewed are Neg Past Family Social History Allergies: Coded Allergies: codeine (Unverified Allergy, Mild, EDEMA, 04/28/17) tramadol (Unverified Allergy, Mild, "MY EYES ROLL BACK", 04/28/17) sulfamethoxazole (Verified Allergy, Unknown, 05/20/17) trimethoprim (Verified Allergy, Unknown, 05/20/17) Past Medical History TIA HTN HLD GERD Major depressive disorder anxiety malformation of left arm with weakness Past Surgical History Soft spot surgery as a baby Left knee surgery with subsequent AKA C-sections Reported Medications Reported Meds & Active Scripts Active Senna Plus 8.6-50 mg (Sennosides-Docusate Sodium) 1 Tab Tab 1 Tab PO BID Pravachol (Pravastatin) 40 Mg Tab 40 Mg PO DAILY Adult Aspirin EC Low Strength (Aspirin) 81 Mg Tabec 81 Mg PO DAILY Reported Losartan (Losartan Potassium) 100 Mg Tab 100 Mg PO DAILY Seroquel XR (Quetiapine Fumarate) 150 Mg Tab 150 Mg PO HS Gabapentin 600 Mg Tab 600 Mg PO BID Active Ordered Medications Current Medications Medications (Trade) Dose Ordered Sig/Rebeca Route Start Time Stop Time Status Last Admin (Benadryl) 50 mg HS PRN PO 08/31/17 23:30 09/01/17 01:25 (Tylenol) 650 mg Q4H PRN PO 08/31/17 23:30 09/01/17 01:26 (Milk Of Magnesia Liq) 30 ml DAILY PRN PO 08/31/17 23:30 (Mag-Al Plus Susp Liq) 30 ml Q6H PRN PO 08/31/17 23:30 (Ecotrin Ec) 81 mg DAILY PO 09/01/17 09:00 09/01/17 09:51 (Pravachol) 40 mg DAILY PO 09/01/17 09:00 09/01/17 09:50 (Natasha-Colace) 1 tab BID PRN PO 08/31/17 23:30 (SEROquel XR) 150 mg HS PO 09/01/17 21:00 (Cozaar) 100 mg DAILY PO 09/01/17 09:00 09/01/17 09:50 (Atarax) 50 mg Q6H PRN PO 09/01/17 10:30 09/01/17 12:00 (PROzac) 20 mg DAILY PO 09/01/17 13:00 09/01/17 14:46 (Neurontin) 600 mg DAILY PO 09/02/17 09:00 (Neurontin) 800 mg HS PO 09/01/17 21:00 (Percocet 5-325 Mg) 1 tab BID PRN PO 09/01/17 16:45 Family History Mother and father both of [place] Social History Tobacco use:denies Alcohol use: occasional Illicit drug use: occasional marijuana Physical Exam Vital Signs Vital Signs Date Time Temp Pulse Resp B/P (MAP) Pulse Ox O2 Delivery O2 Flow Rate FiO2 09/01/17 07:34 18 09/01/17 06:17 98.1 101 20 144/71 (95) 98 08/31/17 23:33 08/31/17 22:54 97 18 161/81 (925) 20 Physical Exam GENERAL: This is a well-nourished, well-developed patient, in no apparent distress. SKIN: No rashes, ecchymoses or lesions. Cool and dry. HEAD: Atraumatic. Visible scar on top of head, no open skin. No temporal or scalp tenderness. EYES: Pupils equal round and reactive. No scleral icterus. No injection or drainage. ENT: Nose without bleeding, purulent drainage or septal hematoma. Airway patent. NECK: Trachea midline. No JVD Supple, nontender. CARDIOVASCULAR: Regular rate and rhythm without murmurs, gallops, or rubs. RESPIRATORY: Clear to auscultation. Breath sounds equal bilaterally. No wheezes , rales, or rhonchi. GASTROINTESTINAL: Abdomen soft, non-tender, nondistended.. MUSCULOSKELETAL: Extremities without clubbing, cyanosis, or edema. Left AKA with well approximated scan, no warmth, redness, erythema noted. No joint tenderness, effusion, or edema noted. + Crepitus of right knee with active ROM with limited movement. NEUROLOGICAL: Awake and alert. 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 Motor and sensory grossly within normal limits. Normal speech. Laboratory Laboratory Tests Test 09/01/17 13:55 Triglycerides Level 47 Cholesterol Level 199 LDL Cholesterol 140 HDL Cholesterol 49.4 Cholesterol/HDL Ratio 4.02 Assessment and Plan Assessment and Plan 42-year-old female with PMH of TIA, HTN, HLD, GERD, left AKA following MRSA infection after knee surgery, adjustment mood disorder, anxiety, and depression. Patient originally presented to [facility] under a Rojo Act due to reports of suicide ideation by cutting her wrist. She was transported to [facility] for further evaluation and management, medical team consulted to aid in the management of her chronic pain. Leg pain and spasms Phantom pain - Psychiatry services started Percocet 5 - Add Baclofen for muscle spasms as needed - Topical Bengay Ointment to knee for pain relief Major depressive disorder with suicidal ideation - Evaluation and treatment by psych services, medications being adjusted. - Rojo act lifted by psych, voluntary status with transfer to high acuity unit. HTN, BP elevated - Patient with history of hypertension, home dose Cozaar has been restarted - Patient's blood pressure continues to be elevated, will monitor for now, consider adding Norvasc if needed. - Continue monitoring BP trend Lipidemia, chronic History of CVA - Nonfasting lab work with LDL 140 - Resume patient's dose of pravastatin - Continue low dose ASA, statin, better BP control VTE: Patient mobile in a wheelchair. Code Status Full code [email or web address] Sep 01, 2017 16:30
[2017-09-01 17:23] LABS: HEMOGLOBIN A1C 5.7 % (4.3-6.0)
[2017-09-01] MEDS ORDERED: MENTHOL/METHYL SALICYLATE OINT 30 GM TUBE TOPICAL PRN (18:15)
[2017-09-01 18:26] VITALS: BP 131/64; PULSE 99; RESP 18; TEMP 98.2; O2SAT 98
[2017-09-01] MEDS ORDERED: QUEtiapine FUMARATE 150 MG EXTENDED RELEASE TABLET PO SCH (21:00)
[2017-09-01] MEDS ORDERED: GABAPENTIN 400 MG CAP PO SCH (21:00)
[2017-09-01] MEDS: oxyCODONE/ACETAMINOPHEN 5 MG/325 MG TAB PO PRN (21:07)
[2017-09-02 06:08] VITALS: BP 149/63; PULSE 97; RESP 16; TEMP 98.2; O2SAT 95
[2017-09-02] MEDS: LOSARTAN 50 MG TAB PO SCH (08:35)
[2017-09-02] MEDS: ASPIRIN EC 81 MG TABEC PO SCH (08:36)
[2017-09-02] MEDS: GABAPENTIN 300 MG CAP PO SCH (08:36)
[2017-09-02] MEDS: FLUoxetine HCL 20 MG CAP PO SCH (08:36)
[2017-09-02] MEDS: oxyCODONE/ACETAMINOPHEN 5 MG/325 MG TAB PO PRN ×2 (08:37→21:48)
[2017-09-02] MEDS: PRAVASTATIN SOD 40 MG TAB PO SCH (08:37)
[2017-09-02 12:02] LABS: AUTOMATED NEUTROPHIL # 8.7 TH/MM3 (1.8-7.7); BASOPHIL % 0.4 % (0.0-2.0); EOSINOPHIL # 0.3 TH/MM3 (0-0.4); EOSINOPHIL % 2.5 % (0.0-4.0); HEMATOCRIT 39.4 % (35.0-46.0); HEMOGLOBIN 12.2 GM/DL (11.6-15.3); LYMPHOCYTE # 3.2 TH/MM3 (1.0-4.8); MEAN CELL VOLUME 72.6 FL (80.0-100.0); MEAN CORPUSCULAR HEMOGLOBIN 22.5 PG (27.0-34.0); MEAN PLATELET VOLUME 7.4 FL (7.0-11.0); MONO % 4.8 % (0.0-8.0); MONOCYTE # 0.6 TH/MM3 (0-0.9); NEUT % 67.3 % (16.0-70.0); PLATELET COUNT 254 TH/MM3 (150-450); RED BLOOD COUNT 5.42 MIL/MM3 (4.00-5.30); RED CELL DISTRIBUTION WIDTH 19.3 % (11.6-17.2); WHITE BLOOD COUNT 12.9 TH/MM3 (4.0-11.0)
[2017-09-02 12:32] LABS: IRON (FE) 26 MCG/DL (50-170)
[2017-09-02 12:42] LABS: % SATURATION IRON PROFILE 5.4 % (20-50); FERRITIN 9 NG/ML (8-252); TOTAL IRON BINDING CAPACITY 483 MCG/DL (250-450)
--- NOTE | 2017-09-02 14:25 | HHI.PYPN ---
Subjective Chief Complaint: Depression Remarks Patient seen and examined with nurse. Chart reviewed. Case discussed with nursing staff. No behavioral issues overnight. Patient was not transferred to high acuity unit as a bed was not available. She was instead placed in a room with a roommate who sitter was undergoing one-to-one observation. On my examination today, the patient remains depressed but denies urge to hurt herself on the unit. She contracts for safety on the unit today. She continues to display cluster B personality traits. She wishes to discontinue the Seroquel because of weight gain and restless legs. She does complain of poor sleep, and we discuss at length her options regarding a hypnotic (patient has tried melatonin and Benadryl without much success, OP provider reportedly avoiding Ambien because of opiate use and benzos are undesirable from this aspect as well, reports rash from trazodone, Remeron is a possibility but will try to titrate GBP first). We agree on trying to further titrate her gabapentin. No psychotic/manic symptoms. Besides the restless legs, reportedly from Seroquel, the patient denies any side effects from medications. She complains of arthritic and phantom limb pain in her legs but otherwise has no physical complaints today. Review of Systems Except as stated in HPI: all other systems reviewed are Neg Mental Status Examination Appearance: Appropriate Consciousness: Alert Orientation: x4 Motor Activity: Other (no motor abnormalities noted) Speech: Unremarkable Language: Adequate Fund of Knowledge: Adequate Attention and Concentration: Adequate Memory: Unremarkable (grossly intact on clinical exam) Mood: Other (dysphoric) Affect: Blunt Thought Process & Associations: Intact, Logical, Linear Thought Content: Appropriate Hallucination Type: None Delusion Type: None Suicidal Ideation: No Suicidal Plan: No Suicidal Intention: No Homicidal Ideation: No Homicidal Plan: No Homicidal Intention: No Insight: Fair Judgment: Adequate (fair) Results Labs Item Value Date Time White Blood Count 12.9 TH/MM3 H 09/02/17 1135 Hemoglobin 12.2 GM/DL 09/02/17 1135 Platelet Count 254 TH/MM3 09/02/17 1135 Hemoglobin A1c 5.7 % 09/01/17 1355 Iron Level 26 MCG/DL L 09/02/17 1135 Total Iron Binding Capacity 483 MCG/DL H 09/02/17 1135 Percent Iron Saturation 5.4 % L 09/02/17 1135 Ferritin 9 NG/ML 09/02/17 1135 Thyroid Stimulating Hormone 3rd Gen 0.823 uIU/ML 09/02/17 1135 Labs reviewed. Ongoing mild leukocytosis without s/sxs of infection. Microcytosis without anemia, and iron studies are not inconsistent with iron deficiency, which can contribute to restless legs. TSH wnl. Vitals/IOs Vital Signs Date Time Temp Pulse Resp B/P (MAP) Pulse Ox O2 Delivery O2 Flow Rate FiO2 09/02/17 06:08 98.2 97 16 149/63 (91) 95 Assessment & Plan Problem List: (1) Major depressive disorder, recurrent severe without psychotic features ICD Codes: F33.2 - Major depressive disorder, recurrent severe without psychotic features Assessment & Plan Extensive psychoeducation and discussion regarding pharmacology of antidepressants as well as hypnotics. Continue Prozac as ordered for low mood. Titrate gabapentin to 600/1000mg as noted above. Discontinue Seroquel; I have cautioned her that she may experience some rebound insomnia. Iron supplement. All med changes discussed with patient. Hospitalist input noted and appreciated. Continue to monitor on the inpatient unit. Now that she is ramon for safety, I think it is appropriate to retain the patient on the lower acuity unit although we will have a low threshold to transfer her to the higher acuity unit or place her with a one-to-one if needed. Continue other medications and care as ordered. Justification for Cont. Inpt. Medication changes. Monitoring for impairments in safety. Discharge Planning Pending psychiatric stabilization. Request HC Surrog/Guard Advoc?: No Lenard Garcia MD Sep 02, 2017 14:25
--- NOTE | 2017-09-02 15:21 | HHI.PR ---
Subjective Remarks Follow-up on a 42-year-old female with PMH of TIA, HTN, HLD, GERD, left AKA following MRSA infection after knee surgery, adjustment mood disorder, anxiety, and depression. She is seen and examined sitting up in wheelchair, she sees me and waves me down, asking if I ever added something for her pain. I tell her that I added something that will help with leg spasms, but she will have to request this medication from the nurse as it is not scheduled. She repots she had a good night with less pain since she was started on Percocet. She denies any fever, chills, nausea, vomiting, diarrhea, headaches, chest pain or SOB. Objective Vitals Vital Signs Date Time Temp Pulse Resp B/P (MAP) Pulse Ox O2 Delivery O2 Flow Rate FiO2 09/02/17 06:08 98.2 97 16 149/63 (91) 95 09/01/17 22:34 18 09/01/17 18:26 98.2 99 18 131/64 (86) 98 Result Diagram: 09/02/17 1135 Objective Remarks GENERAL: This is a well-nourished, well-developed patient, in no apparent distress. SKIN: No rashes, ecchymoses or lesions. Cool and dry. HEAD: Atraumatic. Visible scar on top of head, no open skin. EYES: Pupils equal round and reactive. No scleral icterus. No injection or drainage. ENT: Nose without bleeding. Airway patent. NECK: Trachea midline. No JVD. CARDIOVASCULAR: Regular rate and rhythm without murmurs, gallops, or rubs. RESPIRATORY: Clear to auscultation. Breath sounds equal bilaterally. No wheezes , rales, or rhonchi. GASTROINTESTINAL: Abdomen soft, non-tender, nondistended.. MUSCULOSKELETAL: Extremities without clubbing, cyanosis, or edema. Left AKA with well approximated scan, no warmth, redness, erythema noted. No joint tenderness, effusion, or edema noted. + Crepitus of right knee with active ROM with limited movement. NEUROLOGICAL: Awake and alert. Moves all extremities spontaneously, noted weakness of left arm complaint supervisor, patient with history of malformation. Motor and sensory grossly within normal limits. Normal speech. A/P Problem List: (1) TIA (transient ischemic attack) ICD Code: G45.9 - Transient cerebral ischemic attack, unspecified Status: Acute (2) HTN (hypertension) ICD Code: I10 - Essential (primary) hypertension Status: Chronic (3) History of left above knee amputation ICD Code: Z89.612 - Acquired absence of left leg above knee Status: Acute (4) Major depressive disorder, recurrent severe without psychotic features ICD Code: F33.2 - Major depressive disorder, recurrent severe without psychotic features Assessment and Plan 42-year-old female with PMH of TIA, HTN, HLD, GERD, left AKA following MRSA infection after knee surgery, adjustment mood disorder, anxiety, and depression. Patient originally presented to [facility] under a Rojo Act due to reports of suicide ideation by cutting her wrist. She was transported to [place] for further evaluation and management, medical team consulted to aid in the management of her chronic pain. Leg pain and spasms Phantom pain - Psychiatry services started Percocet 5 - Add Baclofen for muscle spasms as needed - Topical Bengay Ointment to knee for pain relief - Patient encouraged to ask for Baclofen as needed. Major depressive disorder with suicidal ideation - Evaluation and treatment by psych services, medications being adjusted. - Rojo act lifted by psych, voluntary status with transfer to high acuity unit. HTN, BP elevated - Patient with history of hypertension, home dose Cozaar has been restarted - Patient's blood pressure stable. Lipidemia, chronic History of CVA - Nonfasting lab work with LDL 140 - Resume patient's dose of pravastatin - Continue low dose ASA, statin, better BP control VTE: Patient mobile in a wheelchair. Patient discussed with . Will sign off, please reconsult if needed, thank you. Janneth Downing Sep 02, 2017 15:21
[2017-09-02] MEDS: BACLOFEN 10 MG TAB PO PRN (15:28)
[2017-09-02] MEDS: FERROUS SULFATE 325 MG (65 MG ELEMENTAL IRON) TAB PO SCH (17:00)
[2017-09-02] MEDS: hydrOXYzine HCL 50 MG TAB PO PRN ×2 (18:27→23:29)
[2017-09-02 18:54] VITALS: BP 130/81; PULSE 89; RESP 18; TEMP 97.7; O2SAT 98
[2017-09-02] MEDS: GABAPENTIN 100 MG CAP PO SCH (21:35)
[2017-09-02] MEDS: diphenhydrAMINE HCL 50 MG CAP - HS PRN PO (21:48)
[2017-09-02] MEDS: GABAPENTIN 400 MG CAP PO SCH (21:48)
[2017-09-03 06:07] VITALS: BP 142/71; PULSE 98; RESP 18; TEMP 97.5; O2SAT 98
[2017-09-03] MEDS: PRAVASTATIN SOD 40 MG TAB PO SCH (08:18)
[2017-09-03] MEDS: LOSARTAN 50 MG TAB PO SCH (08:18)
[2017-09-03] MEDS: ASPIRIN EC 81 MG TABEC PO SCH (08:18)
[2017-09-03] MEDS: FLUoxetine HCL 20 MG CAP PO SCH (08:18)
[2017-09-03] MEDS: GABAPENTIN 300 MG CAP PO SCH (08:18)
[2017-09-03] MEDS: oxyCODONE/ACETAMINOPHEN 5 MG/325 MG TAB PO PRN ×2 (08:22→21:13)
--- NOTE | 2017-09-03 11:27 | HHI.PYPN ---
Subjective Chief Complaint: Depression Remarks Patient seen and examined with nurse. Chart reviewed. Case discussed with nursing staff. Patient reportedly complained of subjectively poor sleep although I see that 7 hours is charted. On my exam, patient is somewhat faultfinding. After our extensive discussion and planning regarding hypnotics, for example, she complains of poor sleep and castigates this physician for not providing her with additional hypnotics. I remind her of our discussion and the plan we settled upon yesterday as detailed in my notes. She continues to complain of low mood and "constantly crying," although she denies any suicidal ideation today. Cluster B personality traits noted. Denies side effects from medications. She does report that paresthesias in legs are improved with titration of gabapentin and verbalizes no other physical complaints. Review of Systems Except as stated in HPI: all other systems reviewed are Neg Mental Status Examination Appearance: Appropriate Consciousness: Alert Orientation: x4 Motor Activity: Other (no motor abnormalities noted) Speech: Unremarkable Language: Adequate Fund of Knowledge: Adequate Attention and Concentration: Adequate Memory: Unremarkable (intact) Mood: Other (dysphoric) Affect: Blunt Thought Process & Associations: Intact, Logical, Linear Thought Content: Appropriate Hallucination Type: None Delusion Type: None Suicidal Ideation: No Suicidal Plan: No Suicidal Intention: No Homicidal Ideation: No Homicidal Plan: No Homicidal Intention: No Insight: Fair Judgment: Adequate (fair) Results Labs Test 09/02/17 11:35 White Blood Count 12.9 TH/MM3 Red Blood Count 5.42 MIL/MM3 Hemoglobin 12.2 GM/DL Hematocrit 39.4 % Mean Corpuscular Volume 72.6 FL Mean Corpuscular Hemoglobin 22.5 PG Mean Corpuscular Hemoglobin Concent 31.0 % Red Cell Distribution Width 19.3 % Platelet Count 254 TH/MM3 Mean Platelet Volume 7.4 FL Neutrophils (%) (Auto) 67.3 % Lymphocytes (%) (Auto) 25.0 % Monocytes (%) (Auto) 4.8 % Eosinophils (%) (Auto) 2.5 % Basophils (%) (Auto) 0.4 % Neutrophils # (Auto) 8.7 TH/MM3 Lymphocytes # (Auto) 3.2 TH/MM3 Monocytes # (Auto) 0.6 TH/MM3 Eosinophils # (Auto) 0.3 TH/MM3 Basophils # (Auto) 0.0 TH/MM3 CBC Comment DIFF FINAL Differential Comment Iron Level 26 MCG/DL Total Iron Binding Capacity 483 MCG/DL Percent Iron Saturation 5.4 % Ferritin 9 NG/ML Thyroid Stimulating Hormone 3rd Gen 0.823 uIU/ML Labs reviewed. Vitals/IOs Vital Signs Date Time Temp Pulse Resp B/P (MAP) Pulse Ox O2 Delivery O2 Flow Rate FiO2 09/03/17 06:07 97.5 98 18 142/71 (94) 98 Assessment & Plan Problem List: (1) Major depressive disorder, recurrent severe without psychotic features ICD Codes: F33.2 - Major depressive disorder, recurrent severe without psychotic features Assessment & Plan Plan reviewed in detail with patient. We will titrate Prozac to 40mg daily to target low mood. I review typical antidepressant response times with patient. I will add no additional hypnotic at this time and instead have encouraged sleep hygiene recommendations with patient. If sleep does not improve, we could consider addition of Remeron in succeeding days. Hospitalist input noted and appreciated. Continue other medications and care as ordered. Justification for Cont. Inpt. Medication changes. Risk for decompensation in less restrictive environment. Discharge Planning Possible discharge beginning of next week. Request HC Surrog/Guard Advoc?: No Lenard Garcia MD Sep 03, 2017 11:27
[2017-09-03] MEDS: FERROUS SULFATE 325 MG (65 MG ELEMENTAL IRON) TAB PO SCH ×2 (11:29→16:12)
[2017-09-03] MEDS: hydrOXYzine HCL 50 MG TAB PO PRN (14:19)
[2017-09-03] MEDS: BACLOFEN 10 MG TAB PO PRN (16:12)
[2017-09-03 18:01] VITALS: BP 157/100; PULSE 92; RESP 19; TEMP 98.2; O2SAT 98
[2017-09-03] MEDS: GABAPENTIN 100 MG CAP PO SCH (21:12)
[2017-09-03] MEDS: GABAPENTIN 400 MG CAP PO SCH (21:12)
[2017-09-03] MEDS: diphenhydrAMINE HCL 50 MG CAP - HS PRN PO (21:13)
[2017-09-04 05:32] VITALS: BP 143/64; PULSE 83; RESP 18; TEMP 98.6; O2SAT 97
[2017-09-04] MEDS: GABAPENTIN 300 MG CAP PO SCH (09:51)
[2017-09-04] MEDS: LOSARTAN 50 MG TAB PO SCH (09:52)
[2017-09-04] MEDS: PRAVASTATIN SOD 40 MG TAB PO SCH (09:52)
[2017-09-04] MEDS: FLUoxetine HCL 20 MG CAP PO SCH (09:52)
[2017-09-04] MEDS: ASPIRIN EC 81 MG TABEC PO SCH (09:52)
--- NOTE | 2017-09-04 12:17 | HHI.PYPN ---
Subjective Chief Complaint: Depression Remarks Patient seen and examined with nurse. Chart reviewed. Case discussed in treatment team and with nursing staff. On my examination today, patient remains depressed. Continues to complain of poor sleep. Remains somewhat anxious. Some obsessive compulsive and mixed cluster B personality traits noted. Denies side effects from medications. Requesting to add Remeron for sleep. Complains of constipation, no BM x 2 days. Still passing flatus. No other new physical complaints. Review of Systems Except as stated in HPI: all other systems reviewed are Neg Mental Status Examination Appearance: Appropriate Consciousness: Alert Orientation: x4 Motor Activity: Other (no motoric abnormalities appreciated) Speech: Unremarkable Language: Adequate Fund of Knowledge: Adequate Attention and Concentration: Adequate Memory: Unremarkable (grossly intact on clinical exam) Mood: Other (dysphoric) Affect: Blunt Thought Process & Associations: Intact, Logical, Linear Thought Content: Appropriate Hallucination Type: None Delusion Type: None Suicidal Ideation: No Suicidal Plan: No Suicidal Intention: No Homicidal Ideation: No Homicidal Plan: No Homicidal Intention: No Insight: Fair Judgment: Adequate (fair) Results Labs Labs reviewed. No new labs. Vitals/IOs Vital Signs Date Time Temp Pulse Resp B/P (MAP) Pulse Ox O2 Delivery O2 Flow Rate FiO2 09/04/17 05:32 98.6 83 18 143/64 (90) 97 Intake and Output 09/04/17 09/04/17 09/05/17 08:00 16:00 00:00 Intake Total 240 ml 600 ml Balance 240 ml 600 ml Assessment & Plan Problem List: (1) Major depressive disorder, recurrent severe without psychotic features ICD Codes: F33.2 - Major depressive disorder, recurrent severe without psychotic features Assessment & Plan Add Remeron 15 mg at bedtime to augment patient's Prozac and for sleep. Patient is already on Natasha-Colace, and I will add Dulcolax as needed for constipation. R/B/A for all med changes d/w patient. Continue to monitor on inpatient unit. Continue other medications and care as ordered. Justification for Cont. Inpt. Med changes. Risk for decompensation in less restrictive environment. Discharge Planning Patient and I discussed possible referral for residential treatment if her insurance will cover this. Alternatively counselor is looking at housing options as patient has apparently been evicted from the hotel room in which she was staying. Case discussed with counselor. Request HC Surrog/Guard Advoc?: No Lenard Garcia MD Sep 04, 2017 12:17
--- NOTE | 2017-09-04 12:49 | PD.TTN ---
Patient Problems 1. Discharge planning 2. Medication compliance 3. Knowledge deficit 4. Lack of coping skills Progress Toward Goals Provider Present: Dr. Mary Garcia Provider Input: Dr. Garcia's treatment team met to discuss patient's treatment plan, medication, and discharge. Patient is new to unit needs to accessed. 09/04/17 Patient's medication is being increased along with patient getting sleep medication Nurse(s) Input: Patient's nurse Marixa reports patient continues to report she is suicidal, depressed, medication compliant 09/04/17 Psychiatric Counselors Present: [facility] Input: Patient is new to this counselor. Will access patient for treatment plan and goals. 09/04/17 Patient seen today. Patient reports feeling sad, depressed, affect lable. Patient made good eye contact. Patient is medication compliant. Patient reports eating ok, but is not sleeping well. Medication is being looked at for sleep. Group Spec/RT/OT/FIGUEREDO Present: Neo Hicks OT Group Spec/RT/OT/FIGUEREDO Input: Patient is new to unit. 09/04/17 Patient attends groups reg[facility] at [facility] Sep 04, 2017 12:49
[2017-09-04] MEDS: oxyCODONE/ACETAMINOPHEN 5 MG/325 MG TAB PO PRN (13:36)
[2017-09-04] MEDS: FERROUS SULFATE 325 MG (65 MG ELEMENTAL IRON) TAB PO SCH ×2 (13:37→17:40)
[2017-09-04] MEDS ORDERED: BISACODYL EC 5 MG TABEC PO PRN (14:15)
[2017-09-04 15:38] VITALS: BP 139/65; PULSE 90; RESP 18; TEMP 98.3; O2SAT 98
[2017-09-04] MEDS: BACLOFEN 10 MG TAB PO PRN (17:40)
[2017-09-04] MEDS ORDERED: MIRTAZAPINE 15 MG TAB PO SCH (21:00)
[2017-09-04] MEDS: GABAPENTIN 100 MG CAP PO SCH (22:00)
[2017-09-04] MEDS: GABAPENTIN 400 MG CAP PO SCH (22:00)
[2017-09-04] MEDS: hydrOXYzine HCL 50 MG TAB PO PRN (22:01)
[2017-09-05 06:10] VITALS: BP 146/72; PULSE 104; RESP 17; TEMP 98.2; O2SAT 97
[2017-09-05] MEDS: FLUoxetine HCL 20 MG CAP PO SCH (10:02)
[2017-09-05] MEDS: ASPIRIN EC 81 MG TABEC PO SCH (10:02)
[2017-09-05] MEDS: PRAVASTATIN SOD 40 MG TAB PO SCH (10:03)
[2017-09-05] MEDS: oxyCODONE/ACETAMINOPHEN 5 MG/325 MG TAB PO PRN ×2 (10:03→21:31)
[2017-09-05] MEDS: LOSARTAN 50 MG TAB PO SCH (10:04)
[2017-09-05] MEDS: GABAPENTIN 300 MG CAP PO SCH (10:05)
--- NOTE | 2017-09-05 13:24 | HHI.PYPN ---
Subjective Chief Complaint: Depression Remarks Patient was seen and case discussed with nursing. Patient continues to complain of leg pain and will be seen by the hospitalist became by today. Patient says she has a plan to overdose if she developed suicidal ideation but at the time says that she is not having thoughts of doing so. Chief complaint today is poor sleep. Behaving well on the unit. Went outside Mental Status Examination Appearance: Appropriate Consciousness: Alert Orientation: x4 Motor Activity: Other (no motoric abnormalities appreciated) Speech: Unremarkable Language: Adequate Fund of Knowledge: Adequate Attention and Concentration: Adequate Memory: Unremarkable (grossly intact on clinical exam) Mood: Other (dysphoric) Affect: Blunt Thought Process & Associations: Intact, Logical, Linear Thought Content: Appropriate Hallucination Type: None Delusion Type: None Suicidal Ideation: No Suicidal Plan: No Suicidal Intention: No Homicidal Ideation: No Homicidal Plan: No Homicidal Intention: No Insight: Fair Judgment: Adequate (fair) Results Vitals/IOs Vital Signs Date Time Temp Pulse Resp B/P (MAP) Pulse Ox O2 Delivery O2 Flow Rate FiO2 09/05/17 06:10 98.2 104 17 146/72 (96) 97 Intake and Output 09/05/17 09/05/17 09/06/17 08:00 16:00 00:00 Intake Total 480 ml Balance 480 ml Assessment & Plan Problem List: (1) Major depressive disorder, recurrent severe without psychotic features ICD Codes: F33.2 - Major depressive disorder, recurrent severe without psychotic features Assessment & Plan Increase Remeron to 30 mg by mouth daily at bedtime Justification for Cont. Inpt. Patient would decompensate in a less restrictive setting Request HC Surrog/Guard Advoc?: No Alexis Abbasi DO Sep 05, 2017 13:24
[2017-09-05] MEDS ORDERED: BACLOFEN 10 MG TAB PO PRN (14:30)
--- NOTE | 2017-09-05 14:50 | HHI.PR ---
Subjective Remarks Reconsult on a 42-year-old female with PMH of TIA, HTN, HLD, GERD, left AKA following MRSA infection after knee surgery, adjustment mood disorder, anxiety, and depression. Medical team has been reconsulted to evaluate for leg pain. Patient continues to complain of bilateral leg spasms increased at bedtime. She thinks it might be related to the fact that she is in a wheelchair for the past several days. Denies SOB, chest pain, N/V/D. Objective Vitals Vital Signs Date Time Temp Pulse Resp B/P (MAP) Pulse Ox O2 Delivery O2 Flow Rate FiO2 09/05/17 06:10 98.2 104 17 146/72 (96) 97 09/04/17 15:38 98.3 90 18 139/65 (89) 98 I/O 09/04/17 09/04/17 09/04/17 09/05/17 09/05/17 09/05/17 07:00 15:00 23:00 07:00 15:00 23:00 Intake Total 840 ml 480 ml Balance 840 ml 480 ml Intake Oral 840 ml 480 ml Result Diagram: 09/02/17 1135 Objective Remarks GENERAL: This is a well-nourished, well-developed patient, in no apparent distress. SKIN: No rashes, ecchymoses or lesions. Cool and dry. HEAD: Atraumatic. Visible scar on top of head, no open skin. EYES: Pupils equal round and reactive. No scleral icterus. No injection or drainage. ENT: Nose without bleeding. Airway patent. NECK: Trachea midline. No JVD. CARDIOVASCULAR: Regular rate and rhythm without murmurs, gallops, or rubs. RESPIRATORY: Clear to auscultation. Breath sounds equal bilaterally. No wheezes , rales, or rhonchi. GASTROINTESTINAL: Abdomen soft, non-tender, nondistended.. MUSCULOSKELETAL: Extremities without clubbing, cyanosis, or edema. Left AKA with well approximated scan, no warmth, redness, erythema noted. No joint tenderness, effusion, or edema noted. + Crepitus of right knee with active ROM with limited movement. NEUROLOGICAL: Awake and alert. Moves all extremities spontaneously, noted weakness of left arm post acute care registered nurse, patient with history of malformation. Motor and sensory grossly within normal limits. Normal speech. A/P Problem List: (1) TIA (transient ischemic attack) ICD Code: G45.9 - Transient cerebral ischemic attack, unspecified Status: Acute (2) HTN (hypertension) ICD Code: I10 - Essential (primary) hypertension Status: Chronic (3) History of left above knee amputation ICD Code: Z89.612 - Acquired absence of left leg above knee Status: Acute (4) Major depressive disorder, recurrent severe without psychotic features ICD Code: F33.2 - Major depressive disorder, recurrent severe without psychotic features Assessment and Plan 42-year-old female with PMH of TIA, HTN, HLD, GERD, left AKA following MRSA infection after knee surgery, adjustment mood disorder, anxiety, and depression. Patient originally presented to [facility] under a Rojo Act due to reports of suicide ideation by cutting her wrist. She was transported to [place] for further evaluation and management, medical team consulted to aid in the management of her chronic pain. Leg pain and spasms Phantom pain - Psychiatry services started Percocet 5 - Baclofen increased to 20mg Q8 PRN for spasms, Neurontin dose adjusted 800mg in the AM, 1000mg in the PM by Dr. Thurman - Topical Bengay Ointment to knee for pain relief Major depressive disorder with suicidal ideation - Evaluation and treatment by psych services. - Calm and cooperative HTN, BP elevated - Patient with history of hypertension, home dose Cozaar has been restarted - Patient's blood pressure stable. Lipidemia, chronic History of CVA - Nonfasting lab work with LDL 140 - Resume patient's dose of pravastatin - Continue low dose ASA, statin, better BP control VTE: Patient mobile in a wheelchair. Patient discussed with . Janneth Downing Sep 05, 2017 14:50
[2017-09-05] MEDS: FERROUS SULFATE 325 MG (65 MG ELEMENTAL IRON) TAB PO SCH ×2 (15:13→18:11)
[2017-09-05] MEDS: hydrOXYzine HCL 50 MG TAB PO PRN (15:26)
[2017-09-05 17:52] VITALS: BP 153/66; PULSE 90; RESP 17; TEMP 98.1; O2SAT 97
[2017-09-05] MEDS: MIRTAZAPINE 15 MG TAB PO SCH (20:58)
[2017-09-05] MEDS: GABAPENTIN 100 MG CAP PO SCH (20:58)
[2017-09-05] MEDS: GABAPENTIN 400 MG CAP PO SCH (20:58)
[2017-09-05] MEDS: BACLOFEN 20 MG TAB PO PRN (21:31)
[2017-09-05] MEDS: diphenhydrAMINE HCL 50 MG CAP - HS PRN PO (21:31)
[2017-09-06 06:28] VITALS: BP 148/66; PULSE 86; RESP 16; TEMP 98.1; O2SAT 97
[2017-09-06] MEDS: LOSARTAN 50 MG TAB PO SCH (10:50)
[2017-09-06] MEDS: GABAPENTIN 400 MG CAP PO SCH ×2 (10:50→20:42)
[2017-09-06] MEDS: FLUoxetine HCL 20 MG CAP PO SCH (10:50)
[2017-09-06] MEDS: PRAVASTATIN SOD 40 MG TAB PO SCH (10:50)
[2017-09-06] MEDS: ASPIRIN EC 81 MG TABEC PO SCH (10:51)
--- NOTE | 2017-09-06 11:12 | HHI.PR ---
Subjective Remarks Follow-up visit on 42-year-old female with past medical history of TIA, HTN, HLD , GERD, and left AKA with complaints of bilateral leg spasms. Patient reports that she took baclofen last night and it did not help she continues to have bilateral leg spasms as well as pain. She continues to believe that it may be related to the fact that she is in a wheelchair most of the day since she has been in the psychiatry Department. She reports pain and spasms are less frequent when she is out of her wheelchair She denies any fevers, chills, nausea , vomiting, or diarrhea. Objective Vitals Vital Signs Date Time Temp Pulse Resp B/P (MAP) Pulse Ox O2 Delivery O2 Flow Rate FiO2 09/06/17 06:28 98.1 86 16 148/66 (93) 97 09/05/17 17:52 98.1 90 17 153/66 (95) 97 I/O 09/05/17 09/05/17 09/05/17 09/06/17 09/06/17 09/06/17 07:00 15:00 23:00 07:00 15:00 23:00 Intake Total 480 ml 240 ml Balance 480 ml 240 ml Intake Oral 480 ml 240 ml Result Diagram: 09/02/17 1135 Objective Remarks GENERAL: This is a well-nourished, well-developed patient, in no apparent distress. SKIN: No rashes, ecchymoses or lesions. Cool and dry. HEAD: Atraumatic. Visible scar on top of head, no open skin. EYES: Pupils equal round and reactive. No scleral icterus. No injection or drainage. ENT: Nose without bleeding. Airway patent. NECK: Trachea midline. No JVD. CARDIOVASCULAR: Regular rate and rhythm without murmurs, gallops, or rubs. RESPIRATORY: Clear to auscultation. Breath sounds equal bilaterally. No wheezes , rales, or rhonchi. GASTROINTESTINAL: Abdomen soft, non-tender, nondistended.. MUSCULOSKELETAL: Extremities without clubbing, cyanosis, or edema. Left AKA with well approximated scan, no warmth, redness, erythema noted. No joint tenderness, effusion, or edema noted. + Crepitus of right knee with active ROM with limited movement. NEUROLOGICAL: Awake and alert. 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 Motor and sensory grossly within normal limits. Normal speech. A/P Problem List: (1) TIA (transient ischemic attack) ICD Code: G45.9 - Transient cerebral ischemic attack, unspecified Status: Acute (2) HTN (hypertension) ICD Code: I10 - Essential (primary) hypertension Status: Chronic (3) History of left above knee amputation ICD Code: Z89.612 - Acquired absence of left leg above knee Status: Acute (4) Major depressive disorder, recurrent severe without psychotic features ICD Code: F33.2 - Major depressive disorder, recurrent severe without psychotic features Assessment and Plan 42-year-old female with PMH of TIA, HTN, HLD, GERD, left AKA following MRSA infection after knee surgery, adjustment mood disorder, anxiety, and depression. Patient originally presented to [facility] under a [place] Act due to reports of suicide ideation by cutting her wrist. She was transported to [place] for further evaluation and management, medical team consulted to aid in the management of her chronic pain. Leg pain and spasms Phantom pain - Psychiatry services started Percocet 5 - Baclofen increased to 20mg Q8 PRN for spasms, Neurontin dose adjusted 800mg in the AM, 1000mg in the PM by Dr. Thurman - Topical Bengay Ointment to knee for pain relief - Patient encouraged to assess for baclofen as this is a PRN medication. - Encouraged to spend less time in a wheelchair to prevent spasms. - Will check BMP and mag to rule out electrolyte abnormality as possible cause for spasms. Major depressive disorder with suicidal ideation - Evaluation and treatment by psych services. - Calm and cooperative HTN, BP elevated - BP stable, continue Cozaar Lipidemia, chronic History of CVA - Nonfasting lab work with LDL 140 - Resume patient's dose of pravastatin - Continue low dose ASA, statin, and BP control VTE: Patient mobile in a wheelchair. Janneth Downing Sep 06, 2017 11:12
--- NOTE | 2017-09-06 11:28 | HHI.PYPN ---
Subjective Chief Complaint: Depression Remarks Patient was seen and case discussed with nursing. Patient finds improved sleep and Remeron was increased to 30 mg and per nursing she slept well throughout the night. She found the benefits from the hindu lecture this morning. She does remain hopeless, helpless and has guilty feelings because her boyfriend hurt his back pushing her wheelchair. She does denies suicidal ideation intent or plan. Compliant with medications Mental Status Examination Appearance: Appropriate Consciousness: Alert Orientation: x4 Motor Activity: Other (no motoric abnormalities appreciated) Speech: Unremarkable Language: Adequate Fund of Knowledge: Adequate Attention and Concentration: Adequate Memory: Unremarkable (grossly intact on clinical exam) Mood: Sad Affect: Sad, Blunt Thought Process & Associations: Intact, Logical, Linear Thought Content: Appropriate Hallucination Type: None Delusion Type: None Suicidal Ideation: No Suicidal Plan: No Suicidal Intention: No Homicidal Ideation: No Homicidal Plan: No Homicidal Intention: No Insight: Fair Judgment: Adequate (fair) Results Vitals/IOs Vital Signs Date Time Temp Pulse Resp B/P (MAP) Pulse Ox O2 Delivery O2 Flow Rate FiO2 09/06/17 06:28 98.1 86 16 148/66 (93) 97 Assessment & Plan Problem List: (1) Major depressive disorder, recurrent severe without psychotic features ICD Codes: F33.2 - Major depressive disorder, recurrent severe without psychotic features Assessment & Plan Continue current treatment plan Justification for Cont. Inpt. Patient would decompensate in a less restrictive setting Request HC Surrog/Guard Advoc?: No Alexis Abbasi DO Sep 06, 2017 11:28
[2017-09-06] MEDS: FERROUS SULFATE 325 MG (65 MG ELEMENTAL IRON) TAB PO SCH ×2 (12:00→17:26)
[2017-09-06] MEDS: oxyCODONE/ACETAMINOPHEN 5 MG/325 MG TAB PO PRN ×2 (12:00→20:53)
[2017-09-06] MEDS: BACLOFEN 20 MG TAB PO PRN ×2 (12:01→20:43)
[2017-09-06 18:20] VITALS: BP 161/71; PULSE 93; RESP 16; TEMP 98.4; O2SAT 96
[2017-09-06] MEDS: MIRTAZAPINE 15 MG TAB PO SCH (20:43)
[2017-09-06] MEDS: diphenhydrAMINE HCL 50 MG CAP - HS PRN PO (20:43)
[2017-09-06] MEDS: GABAPENTIN 100 MG CAP PO SCH (20:43)
[2017-09-06] MEDS: hydrOXYzine HCL 50 MG TAB PO PRN (20:44)
[2017-09-06 21:50] LABS: BICARBONATE 21.9 MEQ/L (21.0-32.0); CALCIUM 8.5 MG/DL (8.5-10.1); CREATININE 0.87 MG/DL (0.50-1.00); MAGNESIUM 1.8 MG/DL (1.5-2.5)
[2017-09-07 05:39] VITALS: BP 135/63; PULSE 78; RESP 18; TEMP 98.1; O2SAT 96
[2017-09-07] MEDS ORDERED: MAGNESIUM OXIDE 400 MG TAB PO ONE (08:30)
[2017-09-07] MEDS: BACLOFEN 20 MG TAB PO PRN (08:31)
[2017-09-07] MEDS: ASPIRIN EC 81 MG TABEC PO SCH (08:32)
[2017-09-07] MEDS: oxyCODONE/ACETAMINOPHEN 5 MG/325 MG TAB PO PRN ×2 (08:32→21:17)
[2017-09-07] MEDS: FLUoxetine HCL 20 MG CAP PO SCH (08:33)
[2017-09-07] MEDS: PRAVASTATIN SOD 40 MG TAB PO SCH (08:33)
[2017-09-07] MEDS: LOSARTAN 50 MG TAB PO SCH (08:33)
[2017-09-07] MEDS: GABAPENTIN 400 MG CAP PO SCH ×2 (08:33→21:15)
[2017-09-07] MEDS: FERROUS SULFATE 325 MG (65 MG ELEMENTAL IRON) TAB PO SCH ×2 (12:00→17:00)
--- NOTE | 2017-09-07 12:06 | HHI.PR ---
Subjective Remarks Follow up for leg spasms/pain. The patient is seen eating lunch in the day room. She reports continued "unbearable" pain throughout right leg and left AKA stump. She states the baclofen does not help at all and wants to try a different muscle relaxer. She states she has seen pain management in the past but they didn't do much for her either. She believes her right leg is more swollen than usual and this is causing increased pain. Otherwise she denies any other medical complaints including no headache, lightheadedness, dizziness, chest pain, shortness of breath, or abdominal complaints. Objective Vitals Vital Signs Date Time Temp Pulse Resp B/P (MAP) Pulse Ox O2 Delivery O2 Flow Rate FiO2 09/07/17 05:39 98.1 78 18 135/63 (87) 96 09/06/17 18:20 98.4 93 16 161/71 (101) 96 09/06/17 13:00 16 I/O 09/06/17 09/06/17 09/06/17 09/07/17 09/07/17 09/07/17 07:00 15:00 23:00 07:00 15:00 23:00 Intake Total 240 ml Balance 240 ml Intake Oral 240 ml Result Diagram: 09/06/17 2030 Objective Remarks GENERAL: Well-nourished, well-developed middle aged female patient in [employer]. SKIN: Warm and dry. No rash. HEENT: Normocephalic. Atraumatic. Old scar on forehead. Pupils equal and round. Mucous membranes pink and moist. NECK: Supple. Trachea midline. CARDIOVASCULAR: Regular rate and rhythm. S1, S2 noted. No murmur appreciated. RESPIRATORY: No accessory muscle use. Clear to auscultation. Breath sounds equal bilaterally. GASTROINTESTINAL: Abdomen soft, non-tender, nondistended. Normoactive bowel sounds x4. MUSCULOSKELETAL: Left AKA, no erythema/edema. Right leg with tense edema and calf tenderness to palpation. NEUROLOGICAL: Awake and alert. No obvious cranial nerve deficits. Motor grossly within normal limits. Normal speech. Medications and IVs Current Medications Medications (Trade) Dose Ordered Sig/Rebeca Route Start Time Stop Time Status Last Admin (Benadryl) 50 mg HS PRN PO 08/31/17 23:30 09/06/17 20:43 (Tylenol) 650 mg Q4H PRN PO 08/31/17 23:30 09/01/17 01:26 (Mag-Al Plus Susp Liq) 30 ml Q6H PRN PO 08/31/17 23:30 09/03/17 23:12 (Ecotrin Ec) 81 mg DAILY PO 09/01/17 09:00 09/07/17 08:32 (Pravachol) 40 mg DAILY PO 09/01/17 09:00 09/07/17 08:33 (Natasha-Colace) 1 tab BID PRN PO 08/31/17 23:30 (Cozaar) 100 mg DAILY PO 09/01/17 09:00 09/07/17 08:33 (Atarax) 50 mg Q6H PRN PO 09/01/17 10:30 09/06/17 20:44 (Percocet 5-325 Mg) 1 tab BID PRN PO 09/01/17 16:45 09/07/17 08:32 (Maicol Finnegan Oint) 1 applic UNSCH PRN TOPICAL 09/01/17 18:15 (Neurontin) 800 mg HS PO 09/02/17 21:00 09/06/17 20:42 (Ferrous Sulfate) 325 mg BID@,17 PO 09/02/17 17:00 09/06/17 17:26 (Neurontin) 200 mg HS PO 09/02/17 21:00 09/06/17 20:43 (PROzac) 40 mg DAILY PO 09/04/17 09:00 09/07/17 08:33 (Dulcolax Ec) 10 mg DAILY PRN PO 09/04/17 14:15 (Remeron) 30 mg HS PO 09/05/17 21:00 09/06/17 20:43 (Neurontin) 800 mg DAILY PO 09/06/17 09:00 09/07/17 08:33 (Robaxin) 500 mg Q8HR PRN PO 09/07/17 14:00 A/P Problem List: (1) TIA (transient ischemic attack) ICD Code: G45.9 - Transient cerebral ischemic attack, unspecified Status: Acute (2) HTN (hypertension) ICD Code: I10 - Essential (primary) hypertension Status: Chronic (3) History of left above knee amputation ICD Code: Z89.612 - Acquired absence of left leg above knee Status: Acute (4) Major depressive disorder, recurrent severe without psychotic features ICD Code: F33.2 - Major depressive disorder, recurrent severe without psychotic features Assessment and Plan 42-year-old female with PMH of TIA, HTN, HLD, GERD, left AKA following MRSA infection after knee surgery, adjustment mood disorder, anxiety, and depression. Patient originally presented to [facility] under a [place] Act due to reports of suicide ideation by cutting her wrist. She was transported to [place] for further evaluation and management, medical team consulted to aid in the management of her chronic pain. Leg pain and spasms, Phantom pain - Psychiatry team initiated pain control with Percocet prn - Baclofen increased to 20mg Q8 PRN for spasms, Neurontin dose adjusted 800mg in the AM, 1000mg in the PM by Dr. Thurman - Started on Baclofen with no relief, will try Robaxin prn - Topical Bengay Ointment to knee for pain relief - Encouraged to spend less time in a wheelchair to prevent spasms. - Checked BMP/mag to rule out electrolyte abnormality as possible cause for spasms, mag 1.8, given po Mag Ox replacement - RLE edematous, patient reports worsening, unable to compare to left leg secondary to AKA, will check Doppler U/S RLE to r/out DVT Major depressive disorder with suicidal ideation - Evaluation and treatment by psych services. - Calm and cooperative HTN, BP elevated - BP stable, continue Cozaar Lipidemia, chronic History of CVA - Nonfasting lab work with LDL 140 - Resume patient's dose of pravastatin - Continue low dose ASA, statin, and BP control VTE: Patient mobile in a wheelchair. Ibis Greer PA-C Sep 07, 2017 12:06 pm
--- NOTE | 2017-09-07 12:15 | HHI.PYPN ---
Subjective Chief Complaint: Depression Remarks Patient seen and examined with nurse. Chart reviewed. Case discussed with nursing staff who reports that the patient is more sociable on the unit. On my examination today, the patient says that she visited with her boyfriend over the weekend. She received a holiday card from her daughter which she says has thrown her into a funk because she feels guilty for her daughter's legal predicament, even though patient herself admits that she has no responsibility for it. She also continues to feel like a burden on her boyfriend. She does not verbalize any active suicidal ideation. She continues to complain of poor sleep although charting indicates that she is getting 7 or 8 hours of sleep a night. Some ongoing obsessive-compulsive and mixed cluster B personality traits noted. Denies side effects from medications. No new physical complaints. Requesting double portions. Review of Systems Except as stated in HPI: all other systems reviewed are Neg Mental Status Examination Appearance: Appropriate Consciousness: Alert Orientation: x4 Motor Activity: Other (no abnormal motor movements noted) Speech: Unremarkable Language: Adequate Fund of Knowledge: Adequate Attention and Concentration: Adequate Memory: Unremarkable (intact on clinical exam) Mood: Sad Affect: Sad, Blunt Thought Process & Associations: Intact, Logical, Goal directed, Linear Thought Content: Appropriate Hallucination Type: None Delusion Type: None Suicidal Ideation: No Suicidal Plan: No Suicidal Intention: No Homicidal Ideation: No Homicidal Plan: No Homicidal Intention: No Insight: Fair Judgment: Adequate (fair) Results Labs Test 09/06/17 20:30 Blood Urea Nitrogen 13 MG/DL Creatinine 0.87 MG/DL Random Glucose 139 MG/DL Calcium Level 8.5 MG/DL Magnesium Level 1.8 MG/DL Sodium Level 140 MEQ/L Potassium Level 4.0 MEQ/L Chloride Level 108 MEQ/L Carbon Dioxide Level 21.9 MEQ/L Anion Gap 10 MEQ/L Estimat Glomerular Filtration Rate 71 ML/MIN Labs reviewed. Vitals/IOs Vital Signs Date Time Temp Pulse Resp B/P (MAP) Pulse Ox O2 Delivery O2 Flow Rate FiO2 09/07/17 05:39 98.1 78 18 135/63 (62) 96 Assessment & Plan Problem List: (1) Major depressive disorder, recurrent severe without psychotic features ICD Codes: F33.2 - Major depressive disorder, recurrent severe without psychotic features Assessment & Plan Remeron was titrated to 30 mg at bedtime by the weekend rounding physician. Continue Prozac and Remeron as ordered. Could consider further titration of Prozac to target residual mood symptoms. Hospitalist input noted and appreciated. Follow-up lower extremity Doppler. Continue to monitor on the inpatient unit. Continue other medications include as ordered. Justification for Cont. Inpt. Monitoring for impairment in safety, none noted. Discharge Planning Anticipate discharge later in the week. Request HC Surrog/Guard Advoc?: No Lenard Garcia MD Sep 07, 2017 12:15
[2017-09-07] MEDS: hydrOXYzine HCL 50 MG TAB PO PRN (12:44)
[2017-09-07 18:00] VITALS: BP 143/64; PULSE 81; RESP 18; TEMP 98.3; O2SAT 98
[2017-09-07] MEDS: GABAPENTIN 100 MG CAP PO SCH (21:14)
[2017-09-07] MEDS: diphenhydrAMINE HCL 50 MG CAP - HS PRN PO (21:16)
[2017-09-07] MEDS: METHOCARBAMOL 500 MG TAB PO PRN (21:17)
[2017-09-07] MEDS: MIRTAZAPINE 15 MG TAB PO SCH (21:17)
[2017-09-08] MEDS: FLUoxetine HCL 20 MG CAP PO SCH (08:46)
[2017-09-08] MEDS: GABAPENTIN 400 MG CAP PO SCH ×2 (08:47→20:31)
[2017-09-08] MEDS: PRAVASTATIN SOD 40 MG TAB PO SCH (08:47)
[2017-09-08] MEDS: LOSARTAN 50 MG TAB PO SCH (08:48)
[2017-09-08] MEDS: ASPIRIN EC 81 MG TABEC PO SCH (08:48)
[2017-09-08] MEDS: METHOCARBAMOL 500 MG TAB PO PRN ×2 (08:48→20:30)
[2017-09-08] MEDS: oxyCODONE/ACETAMINOPHEN 5 MG/325 MG TAB PO PRN ×2 (08:48→21:44)
--- NOTE | 2017-09-08 10:02 | RADRPT ---
EXAM DATE/TIME: 09/08/2017 09:32 [facility] COMPARISON: No previous studies available for comparison. INDICATIONS : Right leg swelling. MEDICAL HISTORY : Stroke. Hypercholesterolemia. Hypertension. Heartburn. Arthritis. Left side paraylisis. SURGICAL HISTORY : Tubal ligation. section. Brain surgery at . Above knee amputation left. ENCOUNTER: Initial ACUITY: 3 days PAIN SCORE: 8/10 LOCATION: Right leg. TECHNIQUE: Venous ultrasound of the leg was performed from the inguinal ligament to the proximal calf. Real-gómez e, color Doppler and spectral tracing, compression and augmentation techniques were used. FINDINGS: There is normal compressibility of the deep venous system from the inguinal region to the proximal ca lf. No echogenic clot is seen in the lumen of the common femoral, femoral, popliteal, and posterior tibial veins. There is a normal response of the venous system to proximal and distal augmentation an d respiration. CONCLUSION: Normal examination. Alli Page MD on September 08, 2017 at 10:00 Board Certified Radiologist. This report was verified electronically.
--- NOTE | 2017-09-08 11:22 | HHI.PYPN ---
Subjective Chief Complaint: Depression Remarks Patient seen and examined with nurse. Chart reviewed. Case discussed with occupational therapist and counselor in treatment team. Case discussed with nursing staff. On my examination today, patient remains dysphoric, hopeless, feels 'stuck' related to her amputation. She tells me that she learned today that her daughter who was jailed has attempted to self-injure, and she is understandably distressed by this. No active SI. Sleep "ok." No psychotic symptoms. Denies side effects from medications. No new physical complaints. Review of Systems Except as stated in HPI: all other systems reviewed are Neg Mental Status Examination Appearance: Appropriate Consciousness: Alert Orientation: x4 Motor Activity: Other (no motoric abnormalities appreciated) Speech: Unremarkable Language: Adequate Fund of Knowledge: Adequate Attention and Concentration: Adequate Memory: Unremarkable Mood: Sad Affect: Sad, Blunt Thought Process & Associations: Intact, Logical, Goal directed, Linear Thought Content: Appropriate Hallucination Type: None Delusion Type: None Suicidal Ideation: No Suicidal Plan: No Suicidal Intention: No Homicidal Ideation: No Homicidal Plan: No Homicidal Intention: No Insight: Fair Judgment: Adequate (fair) Results Labs Labs reviewed. No new labs. Lower extremity Doppler read as normal. Vitals/IOs Vital Signs Date Time Temp Pulse Resp B/P (MAP) Pulse Ox O2 Delivery O2 Flow Rate FiO2 09/07/17 18:00 98.3 81 18 143/64 (90) 98 Intake and Output 09/08/17 09/08/17 09/09/17 08:00 16:00 00:00 Intake Total 240 ml Balance 240 ml Assessment & Plan Problem List: (1) Major depressive disorder, recurrent severe without psychotic features ICD Codes: F33.2 - Major depressive disorder, recurrent severe without psychotic features Assessment & Plan Patient agreeable to titration of Prozac for mood. Prozac 60 mg daily. Continue Remeron as ordered. Continue to monitor on inpatient unit. Continue other medications and care as ordered. Justification for Cont. Inpt. Med changes. Risk for decompensation in less restrictive environment. Discharge Planning Case discussed with counselor. Request HC Surrog/Guard Advoc?: No Lenard Garcia MD Sep 08, 2017 11:22
[2017-09-08] MEDS: FERROUS SULFATE 325 MG (65 MG ELEMENTAL IRON) TAB PO SCH ×2 (12:16→17:17)
--- NOTE | 2017-09-08 12:39 | PD.TTN ---
Patient Problems 1. Discharge planning 2. Medication compliance 3. Knowledge deficit 4. Lack of coping skills Progress Toward Goals Provider Present: Dr. Mary Garcia Provider Input: 09/08/17 - Dr. Garcia reproted that he will adjust patient's Prozac today. Dr. Garcia's treatment team met to discuss patient's treatment plan, medication, and discharge. Patient is new to unit needs to accessed. 09/04/17 Patient's medication is being increased along with patient getting sleep medication Nurse(s) Input: Patient's nurse Marixa reports patient continues to report she is suicidal, depressed, medication compliant 09/04/17 Psychiatric Counselors Present[facility] KRISH Van Psych Therapist Input: 09/08/17 - Counselor will introduce patient to Petrona from [facility] tomorrow in an effort to secure appropriate placement. Patient is new to this counselor. Will access patient for treatment plan and goals. 09/04/17 Patient seen today. Patient reports feeling sad, depressed, affect lable. Patient made good eye contact. Patient is medication compliant. Patient reports eating ok, but is not sleeping well. Medication is being looked at for sleep. Group Spec/RT/OT/FIGUEREDO Present: TERELL Nicholas, Neo Hicks, OT Group Spec/RT/OT/FIGUEREDO Input: 09/08/17 - patient attends and participates in groups. Patient is new to unit. 09/04/17 [facility] Documentation Scribe: KRISH Van Date Resolved: Sep 08, 2017 Poonam Escobar Sep 08, 2017 12:39
[2017-09-08] MEDS: hydrOXYzine HCL 50 MG TAB PO PRN (15:01)
[2017-09-08 18:00] VITALS: BP 140/63; PULSE 88; RESP 16; TEMP 98.3; O2SAT 96
[2017-09-08] MEDS: GABAPENTIN 100 MG CAP PO SCH (20:30)
[2017-09-08] MEDS: MIRTAZAPINE 15 MG TAB PO SCH (20:30)
[2017-09-09 05:56] VITALS: BP 131/69; PULSE 91; RESP 18; TEMP 98.4; O2SAT 98
[2017-09-09] MEDS: LOSARTAN 50 MG TAB PO SCH (08:38)
[2017-09-09] MEDS: FLUoxetine HCL 20 MG CAP PO SCH (08:39)
[2017-09-09] MEDS: GABAPENTIN 400 MG CAP PO SCH ×2 (08:39→20:41)
[2017-09-09] MEDS: METHOCARBAMOL 500 MG TAB PO PRN ×2 (08:39→20:40)
[2017-09-09] MEDS: ASPIRIN EC 81 MG TABEC PO SCH (08:39)
[2017-09-09] MEDS: PRAVASTATIN SOD 40 MG TAB PO SCH (08:40)
[2017-09-09] MEDS: oxyCODONE/ACETAMINOPHEN 5 MG/325 MG TAB PO PRN ×2 (08:40→21:40)
--- NOTE | 2017-09-09 11:24 | HHI.PYPN ---
Subjective Chief Complaint: Depression Remarks Patient seen and examined with nurse in day area per patient preference. Chart reviewed. Case discussed with nursing staff. No behavioral issues overnight. Case discussed with counselor who is trying to find the patient some sort of placement but is struggling as the patient is reportedly attaching caveats and conditions to such placement, severely limiting the number of facilities available. On my examination today, I find the patient working on a [employer] project. She is smiling and appears generally euthymic. She admits to improved mood and denies any suicidal ideation. No psychotic symptoms. Denies side effects from medications. No physical complaints. Review of Systems Except as stated in HPI: all other systems reviewed are Neg Mental Status Examination Appearance: Appropriate Consciousness: Alert Orientation: x4 Motor Activity: Other (no motoric abnormalities appreciated) Speech: Unremarkable Language: Adequate Fund of Knowledge: Adequate Attention and Concentration: Adequate Memory: Unremarkable Mood: Other (mood is improving) Affect: Appropriate (fairly full and reactive today) Thought Process & Associations: Intact, Logical, Goal directed, Linear Thought Content: Appropriate Hallucination Type: None Delusion Type: None Suicidal Ideation: No Suicidal Plan: No Suicidal Intention: No Homicidal Ideation: No Homicidal Plan: No Homicidal Intention: No Insight: Fair Judgment: Adequate (fair) Results Labs Labs reviewed. No new labs. Vitals/IOs Vital Signs Date Time Temp Pulse Resp B/P (MAP) Pulse Ox O2 Delivery O2 Flow Rate FiO2 09/09/17 05:56 98.4 91 18 131/69 (89) 98 Assessment & Plan Problem List: (1) Major depressive disorder, recurrent severe without psychotic features ICD Codes: F33.2 - Major depressive disorder, recurrent severe without psychotic features Assessment & Plan Patient seems significantly improved versus admission with respect to her psychiatric complaints. Continue current psychotropics as ordered. Hospitalist has medically cleared the patient for discharge. Continue other medications and care as ordered. Justification for Cont. Inpt. Final discharge planning. Discharge Planning Anticipate discharge tomorrow. Case discussed with counselor. Request HC Surrog/Guard Advoc?: No Lenard Garcia MD Sep 09, 2017 11:24
[2017-09-09] MEDS: FERROUS SULFATE 325 MG (65 MG ELEMENTAL IRON) TAB PO SCH ×2 (12:00→17:00)
[2017-09-09] MEDS: hydrOXYzine HCL 50 MG TAB PO PRN (13:05)
--- NOTE | 2017-09-09 13:35 | HHI.PR ---
Subjective Remarks Negative ultrasound for DVT. No change in chronic symptoms related to AKA left leg. This patient is medically stable this time. Objective Vital Signs Date Time Temp Pulse Resp B/P (MAP) Pulse Ox O2 Delivery O2 Flow Rate FiO2 09/09/17 05:56 98.4 91 18 131/69 (89) 98 09/08/17 18:00 98.3 88 16 140/63 (88) 96 I/O 09/08/17 09/08/17 09/08/17 09/09/17 09/09/17 09/09/17 07:00 15:00 23:00 07:00 15:00 23:00 Intake Total 600 ml 240 ml Balance 600 ml 240 ml Intake Oral 600 ml 240 ml Result Diagram: 09/06/172029 Objective Remarks GENERAL: NAD, A&Ox3 HEAD: Normocephalic. NECK: Supple, trachea midline. No lymphadenopathy. EYES: No scleral icterus. No injection or drainage. CARDIOVASCULAR: Regular rate and rhythm without murmurs, gallops, or rubs. RESPIRATORY: Breath sounds equal bilaterally. No accessory muscle use. GASTROINTESTINAL: Abdomen soft, non-tender, nondistended. MUSCULOSKELETAL: No cyanosis, or edema. Left AKA SKIN: Warm and dry. NEURO: No focal neurological deficitis. A/P Problem List: (1) Major depressive disorder, recurrent severe without psychotic features ICD Code: F33.2 - Major depressive disorder, recurrent severe without psychotic features (2) History of left above knee amputation ICD Code: Z89.612 - Acquired absence of left leg above knee Status: Acute Assessment and Plan Assessment and Plan 42-year-old female admitted secondary to suicidal ideations, with wrist cutting. Baseline history of TIA, hypertension, hyperlipidemia, gastroesophageal reflux disease, left AKA with phantom limb pain, anxiety, depression, mood disorder. Left AKA Phantom limb pain Spasms Pain Paresthesias Negative Doppler ultrasound, no DVT. No further treatments can be added. Next line continue current treatments Baclofen for spasms Neurontin continued Topical BenGay ointment as needed Major depressive disorder with suicidal ideation Continue management per psychiatry recommendations HTN, BP elevated Stable. Continue Cozaar. Lipidemia, chronic History of CVA Continue pravastatin Continue aspirin Continue blood pressure control Continue statin This patient is medically stable for discharge when cleared by psychiatry. Continue present treatments. Hospitalist team will sign off at this time. Agus Regalado MD Sep 09, 2017 13:34
[2017-09-09] MEDS ORDERED: METH500T3 PO (13:37)
[2017-09-09 18:14] VITALS: BP 123/73; PULSE 94; RESP 18; TEMP 98.2; O2SAT 97
[2017-09-09] MEDS: GABAPENTIN 100 MG CAP PO SCH (20:40)
[2017-09-09] MEDS: MIRTAZAPINE 15 MG TAB PO SCH (20:41)
[2017-09-10 06:00] VITALS: BP 148/68; PULSE 81; RESP 17; TEMP 98.1; O2SAT 95
[2017-09-10] MEDS: LOSARTAN 50 MG TAB PO SCH (08:44)
[2017-09-10] MEDS: METHOCARBAMOL 500 MG TAB PO PRN ×2 (08:44→20:51)
[2017-09-10] MEDS: PRAVASTATIN SOD 40 MG TAB PO SCH (08:44)
[2017-09-10] MEDS: ASPIRIN EC 81 MG TABEC PO SCH (08:45)
[2017-09-10] MEDS: FLUoxetine HCL 20 MG CAP PO SCH (08:45)
[2017-09-10] MEDS: oxyCODONE/ACETAMINOPHEN 5 MG/325 MG TAB PO PRN ×2 (08:45→20:49)
[2017-09-10] MEDS: GABAPENTIN 400 MG CAP PO SCH ×2 (08:46→20:46)
[2017-09-10] MEDS ORDERED: GABA100C4 PO (11:47)
[2017-09-10] MEDS ORDERED: MIRTA15 PO (11:47)
[2017-09-10] MEDS ORDERED: NEUR400C PO ×2 (11:47)
[2017-09-10] MEDS ORDERED: FLUO20CA12 PO (11:47)
[2017-09-10] MEDS ORDERED: FERR325T20 PO (11:47)
--- NOTE | 2017-09-10 11:47 | HHI.DS ---
Psychiatry Discharge Summary Inpatient Psychiatric care?: Yes Advance Directive: No Reason Not Provided: Due to Patient Condition Mental Health AdvanceDirective: No Health Care Proxy: No Admission Admission Date Aug 31, 2017 at 23:08 Admission Diagnosis: (1) Major depressive disorder, recurrent severe without psychotic features ICD Code: F33.2 - Major depressive disorder, recurrent severe without psychotic features Brief History Ms. Mckeon is a 42-year-old female with a reported history of depression who presents in transfer from [facility] under a Rojo Act. Documentation from [facility] reviewed. The patient presented there complaining of suicidal ideation and depression. The ED provider note indicates that the patient was planning to cut her wrists but this suicide attempt was apparently aborted before she could do so. The patient was placed under Rojo Act by the ED provider and sent here to [facility] for further management. Reviewing the electronic medical record, I note that the patient was admitted for much of the month of May under Dr. Macdonald with a discharge diagnosis of adjustment disorder with depressed mood. The patient was noted in Dr. Macdonald's discharge summary to be somewhat demanding, manipulative and drug-seeking. The patient is seen and examined with counselor. Chart reviewed. Case discussed with nursing staff. On my examination today, the patient presents as dysphoric. She reports that she began to contemplate suicide the day before yesterday and yesterday morning put this plan into effect by trying to cut herself with a knife. She says that she was in the kitchen at the time and her boyfriend came in and took the knife from her before she could cut herself. She endorses ongoing suicidal ideation with plan to overdose on "anything." She says that she would overdose on medications because this would not be "a painful ." She does endorse ongoing thoughts of hurting herself here on the inpatient unit and declines to contract for safety at this time and so will be moved to the high acuity unit for closer monitoring. The patient endorses low mood, hopeless feelings, worthless feelings. She is somewhat anhedonic. She complains of feeling quite anxious. I can elicit no psychotic symptoms. No audiovisual hallucinations. No delusional material. There are no hypomanic or manic symptoms presently, nor can I elicit any history of same. 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 She also has right knee pain and is fearful that she will require a right knee replacement as it was a knee replacement that occasioned the necessity for the amputation in the first place. She has also suffered a stroke. She is also unhappy because her family seems unconcerned with her medical conditions and distress. Cluster B personality traits are noted. The remainder of the psychiatric ROS is negative. The patient articulates no physical complaints at this time. Tobacco Use In Past 30 Days: No Tobacco Past 30 Days Alcohol Use: 2-4 Times Per Month Hospital Course Patient was admitted to a locked, inpatient psychiatric unit. A general medical consultation was obtained, and the patient was medically cleared prior to discharge. Appropriate precautions were in place throughout patient's hospital stay. Patient was seen and examined on the unit by psychiatry and also visited by counselor. Psychotropic medications were adjusted. Patient tolerated medications well without side effects. Presenting psychiatric symptomatology improved during the course of her hospital stay. There was no evidence of any suicidality or homicidality on the inpatient unit. The patient remained in good behavioral control. Cluster B personality traits noted. On the day of discharge: Patient seen and examined with nurse. Chart reviewed. Case discussed with nursing staff. No significant behavioral disturbance overnight. Patient is noted to be somewhat medication seeking. On my examination today, the patient denies any suicidal or homicidal ideation, intent or plan and contracts for safety. Mood is improved versus admission and I can elicit no severe depressive or hypomanic/manic symptoms. Sleep was fair overnight. She denies any audiovisual hallucinations, and I can elicit no delusional beliefs. She is future oriented. She denies side effects from medications. Suicide and violence risk assessment on day of discharge both suggest lower imminent risk, and patient's level of function is adequate for outpatient care. I do suspect that there is a component of chronic risk but not acute or imminent risk related to patient's cluster B personality style, and this risk would not be ameliorated by a longer inpatient psychiatric hospital stay. It is also noted that the patient is quite comfortable on the inpatient unit, and so it would not be surprising if she manufactured some psychiatric symptoms or even engaged in some sort of gesture in order to regain admission to the inpatient unit, although this is not a valid reason to retain her on the unit now, and in fact it would be counter-therapeutic to do so. She has maximized benefit from this inpatient psychiatric hospital stay and will be discharged today. I have discussed the patient's discharge disposition with counselor and counselor joiners supervisor. It is my instruction to them that, since no placement or housing could be found for patient, they arrange to have the hospital subsidize a hotel placement until the patient's disability check is available, reportedly on 09/16. Patient is to follow-up psychiatrically as arranged by counselor, and I have instructed the counselor to ensure that the patient has a psychotherapeutic referral as well. Patient is to follow-up with primary care. Patient to return to psychiatric emergency room for any concerning psychiatric symptoms as part of a general safety plan. Results Blood Pressure 148 / 68 Vital Signs Date Time Temp Pulse Resp B/P (MAP) Pulse Ox O2 Delivery O2 Flow Rate FiO2 09/10/17 06:00 98.1 81 17 148/68 (94) 95 Laboratory Results Test 09/01/17 13:55 Cholesterol Level 199 MG/DL (120-200) HDL Cholesterol 49.4 MG/DL (40.0-60.0) Hemoglobin A1c 5.7 % (4.3-6.0) LDL Cholesterol 140 MG/DL (0-99) Triglycerides Level 47 MG/DL (42-150) Summary of Procedures None done Imaging Last Impressions Lower Extremity Ultrasound 09/08/17 0000 Signed Impressions: Service Date/Time: Friday, September 08, 2017 09:32 - CONCLUSION: Normal examination. Alli Page MD Pending results at discharge: No Medications # of Antipsychotic meds at D/C: 0 Approp Antipsych med options 1 - Minimum of three failed multiple trials of monotherapy. 2 - Documented plan to taper to monotherapy due to previous use of multiple meds OR cross-taper in progress at D/C. 3 - Documentation of augmentation of Clozapine. 4 - Justification other than those listed in allowable values 1-3, document here : Discharge Discharge Date: Sep 10, 2017 Discharge Diagnosis: (1) Major depressive disorder, recurrent, in remission, unspecified Diagnosis: Principal ICD Code: F33.40 - Major depressive disorder, recurrent, in remission, unspecified (2) Cluster B personality traits Diagnosis: Secondary Pt Condition on Discharge: Stable Discharge Disposition: Discharge Home Discharge Instructions Diet Instructions: As Tolerated, No Restrictions Activities you can perform: Weight Bearing as [place] Scheduled Appointment: as per counselor's notes New Orders: BASIC METABOLIC PROF - 1 Week CBC NO DIFF - 1 Week New Medications: Ferrous Sulfate (Ferosul) 325 Mg (65 Mg Iron) Tablet 325 MG PO BID@12,17 for Iron deficiency for 10 Days, TAB 2 Refills Fluoxetine (Fluoxetine) 20 Mg Capsule 60 MG PO DAILY for Mental Health for 10 Days, #30 CAP 2 Refills Gabapentin (Neurontin) 400 Mg Cap 800 MG PO DAILY for Health for 10 Days, #20 CAP 2 Refills Gabapentin (Gabapentin) 100 Mg Cap 200 MG PO HS for Health for 10 Days, CAP 2 Refills Gabapentin (Neurontin) 400 Mg Cap 800 MG PO HS for Health for 10 Days, CAP 2 Refills Methocarbamol (Methocarbamol) 500 Mg Tab 500 MG PO Q8HR PRN for muscle spasms, #90 TAB Mirtazapine (Mirtazapine) 15 Mg Tab 30 MG PO HS for Mental Health for 15 Days, TAB 1 Refill Continued Medications: Aspirin DR (Adult Aspirin EC Low Strength) 81 Mg Tabec 81 MG PO DAILY for Blood Clot Prevention, #30 TAB Losartan (Losartan) 100 Mg Tab 100 MG PO DAILY for Blood Pressure Management, #30 TAB 0 Refills Pravastatin (Pravachol) 40 Mg Tab 40 MG PO DAILY for Cholesterol Management, #30 TAB Sennosides-Docusate Sodium (Senna Plus 8.6-50 mg) 1 Tab Tab 1 TAB PO BID for Prevent Constipation, #60 TAB Discontinued Medications: Gabapentin (Gabapentin) 600 Mg Tab 600 MG PO BID, #60 TAB 0 Refills Quetiapine XR (Seroquel XR) 150 Mg Tab 150 MG PO HS, #30 TAB 0 Refills Discharge Time > 30 minutes Mental Status Examination Appearance: Appropriate Consciousness: Alert Orientation: x4 Motor Activity: Other (No abnormal motor movements noted) Speech: Unremarkable Language: Adequate Fund of Knowledge: Adequate Attention and Concentration: Adequate Memory: Unremarkable Mood: Appropriate (Improved versus admission) Affect: Appropriate (smiles appropriately, social with peers and staff) Thought Process & Associations: Intact, Logical, Goal directed, Linear Thought Content: Appropriate Hallucination Type: None Delusion Type: None Suicidal Ideation: No Suicidal Plan: No Suicidal Intention: No Homicidal Ideation: No Homicidal Plan: No Homicidal Intention: No Insight: Fair Judgment: Adequate (fair) Discharge/Advance Care Plan Health Problems: (1) Major depressive disorder, recurrent severe without psychotic features Goals to promote your health * To prevent worsening of your condition and complications * To maintain your health at the optimal level Directions to meet your goals Take your medications as prescribed Follow your dietary instruction Follow activity as directed Keep your appointments as scheduled Take your immunizations and boosters as scheduled If your symptoms worsen call your PCP, if no PCP go to Urgent Care Center or Emergency Room For 06/04 questions related to your inpatient stay or results of tests pending at discharge, please contact Dr. Lenard Garcia at Smoking is Dangerous to Your Health. Avoid second hand smoking Lenard Garcia MD Sep 10, 2017 11:47
[2017-09-10] MEDS: FERROUS SULFATE 325 MG (65 MG ELEMENTAL IRON) TAB PO SCH ×2 (14:19→17:00)
[2017-09-10] MEDS: hydrOXYzine HCL 50 MG TAB PO PRN (20:49)
[2017-09-10] MEDS: MIRTAZAPINE 15 MG TAB PO SCH (20:49)
[2017-09-10] MEDS: GABAPENTIN 100 MG CAP PO SCH (20:49)
[2017-09-10] MEDS: diphenhydrAMINE HCL 50 MG CAP - HS PRN PO (20:49)
[2017-09-11 05:39] VITALS: BP 130/59; PULSE 86; RESP 16; TEMP 98.3; O2SAT 95
[2017-09-11] MEDS: PRAVASTATIN SOD 40 MG TAB PO SCH (09:03)
[2017-09-11] MEDS: ASPIRIN EC 81 MG TABEC PO SCH (09:03)
[2017-09-11] MEDS: FLUoxetine HCL 20 MG CAP PO SCH (09:03)
[2017-09-11] MEDS: LOSARTAN 50 MG TAB PO SCH (09:03)
[2017-09-11] MEDS: GABAPENTIN 400 MG CAP PO SCH (09:03)
[2017-09-11] MEDS ORDERED: MIRTA15 PO (11:01)
[2017-09-11] MEDS ORDERED: FLUO20CA12 PO (11:01)
[2017-09-11] MEDS ORDERED: FERR325T20 PO (11:01)
[2017-09-11] MEDS ORDERED: NEUR400C PO ×2 (11:01)
[2017-09-11] MEDS ORDERED: GABA100C4 PO (11:01)
--- NOTE | 2017-09-11 11:02 | HHI.PYPN ---
Subjective Remarks Discharge held yesterday as patient could not be linked with homeless services at that time. Hospital is declining to pay for a hotel. Patient seen and examined with nurse. Chart reviewed. Case discussed with nursing staff. Case discussed in treatment team with counselor and occupational therapist; patient noted by other clinicians to be "very comfortable" on the unit. Patient has been no behavioral problem overnight, and I see from nursing notes that the patient was denying suicidal ideation overnight, as she has been for me for the last several days. On my examination today, social issues predominate, and the patient openly bargains for additional days, saying we should hold her until 09/16 when her check comes in. She does not verbalize any suicidal or homicidal ideation, plan or intent at this point. She does not report any mood symptoms, and there is no evidence of psychosis or impairment in reality construction. When I explain that we cannot retain her on the unit solely to await her check, she replies in a manipulative fashion, "I just need a place until the . I can't guarantee what I'll do [if discharged]." I confront her with the openly manipulative quality of this threat and entreat her not to make any gesture as this would doubtless only serve to make her situation worse. Of note, she does stop short of actually threatening self-harm or violence, instead couching her threats in the above fashion. No side effects from medications. No new physical complaints. Review of Systems ROS Limitations: Uncooperative Except as stated in HPI: all other systems reviewed are Neg Mental Status Examination Appearance: Appropriate Consciousness: Alert Orientation: x4 Motor Activity: Other (No motor abnormalities noted) Speech: Unremarkable Language: Adequate Fund of Knowledge: Adequate Attention and Concentration: Adequate Memory: Unremarkable Mood: Appropriate Affect: Appropriate Thought Process & Associations: Intact, Logical, Goal directed, Linear Thought Content: Appropriate Hallucination Type: None Delusion Type: None Suicidal Ideation: No (Makes veiled threat but does not verbalize any dae zita SI) Suicidal Plan: No Suicidal Intention: No Homicidal Ideation: No Homicidal Plan: No Homicidal Intention: No Insight: Fair Judgment: Adequate (fair) Results Labs Labs reviewed. No new labs. Vitals/IOs Vital Signs Date Time Temp Pulse Resp B/P (MAP) Pulse Ox O2 Delivery O2 Flow Rate FiO2 12/29/17 05:39 98.3 86 16 130/59 (82) 95 Intake and Output 09/11/17 09/11/17 09/12/17 08:00 16:00 00:00 Intake Total 360 ml Balance 360 ml Assessment & Plan Problem List: (1) Major depressive disorder, recurrent, in remission, unspecified ICD Codes: F33.40 - Major depressive disorder, recurrent, in remission, unspecified (2) Cluster B personality traits (3) Malingering ICD Codes: Z76.5 - Malingerer [conscious simulation] Assessment & Plan: for long-term Assessment & Plan As I feared and as I had documented in my discharge summary of yesterday, the patient is issuing veiled threats today in an effort to avoid discharge. These threats are quite obviously motivated by, and by patient's own report linked with patient's desire to remain on the unit, reportedly until her check comes in on 09/16. She has been denying SI/HI for several days, and there has been absolutely no evidence of suicide or violence on the unit despite observing her now for 11 days. Her suicide and violence risk assessment is unchanged from yesterday. This physician stands by his assessment that it is ultimately counter-therapeutic to accede to this patient's manipulative behavior today. I have reiterated my recommendation for outpatient psychiatric followup and have likewise reiterated that patient must utilize the safety plan and return to the ED prior to any attempt at self-injury or harm to others. I have decreased the quantity of patient's psychotropic prescriptions on discharge from a 10-day supply to a 5-day supply with refills to reduce the risk of retributive overdose. Patient will be discharged today. Justification for Cont. Inpt. N/A Request HC Surrog/Guard Advoc?: No Lenard Garcia MD Sep 11, 2017 11:02
[2017-09-11] MEDS: FERROUS SULFATE 325 MG (65 MG ELEMENTAL IRON) TAB PO SCH (12:00)
--- NOTE | 2017-09-11 15:25 | PD.TTN ---
Patient Problems 1. Discharge planning 2. Medication compliance 3. Knowledge deficit 4. Lack of coping skills Progress Toward Goals Provider Present: Dr. Mary Garcia Provider Input: 09/08/17 - Dr. Garcia reproted that he will adjust patient's Prozac today. Dr. Garcia's treatment team met to discuss patient's treatment plan, medication, and discharge. Patient is new to unit needs to accessed. 09/04/17 Patient's medication is being increased along with patient getting sleep medication 09/11/17 Patient will be discharged today. Nurse(s) Input: Patient's nurse Marixa reports patient continues to report she is suicidal, depressed, medication compliant 09/04/17 09/11/17 Patient's nurse Michael reports patient is depressed, is medication compliant, denies suicidal and homicidal ideation. Does not present with delusional content or to be internally stimulated. Psychiatric Counselors Present: KRISH Mcintyre, KRISH Van Psych Therapist Input: 09/08/17 - Counselor will introduce patient to [facility] tomorrow in an effort to secure appropriate placement. Patient is new to this counselor. Will access patient for treatment plan and goals. 09/04/17 Patient seen today. Patient reports feeling sad, depressed, affect lable. Patient made good eye contact. Patient is medication compliant. Patient reports eating ok, but is not sleeping well. Medication is being looked at for sleep. 09/11/17 Patient is doing well. Patient denies suicidal and homicidal ideation. Patient is medication compliant. Patient does not present with delusional content or to be internally stimulated. Patient is being discharged to [facility]. Group Spec/RT/OT/FIGUEREDO Present: TERELL Nicholas Andrew Harrison, ISAAK Group Spec/RT/OT/FIGUEREDO Input: 09/08/17 - patient attends and participates in groups. Patient is new to unit. 09/04/17 Patient attends groups reguarly at activitely participates 09/11/17 Patient participates in most groups appropriately Documentation Scribe: KRISH Van Date Resolved: Sep 08, 2017 Shreya Up Sep 11, 2017 15:25
[2017-09-12] MEDS ORDERED: PANT40TA3 PO (16:58)
[2017-09-12] MEDS ORDERED: IBUP-232 PO (16:59)
[2017-09-12] MEDS ORDERED: METO1TAB9 PO (16:59)
[2017-09-12] MEDS ORDERED: ASPI-183 PO (17:00)
[2017-09-12] MEDS ORDERED: Atarax PO (20:03)
[2017-09-12] MEDS ORDERED: BENA25TA6 PO (20:06)
[2017-09-12] MEDS ORDERED: PERC5TAB12 PO (20:07)
[2017-09-15] MEDS ORDERED: HYDR50TA94 PO (12:12)
== END 2017-09-11 14:30 | disposition home or self-care (01) | DRG 885 ==
LOC: NEPJ 20:45 → NEDA 23:08 → H260 23:54
PROVIDERS: ADMIT Psychiatry & Neurology Psychiatry; ATTEND Psychiatry & Neurology Psychiatry
DX: F33.2 Major depressive disorder, recurrent severe without psychotic features (principal); R45.851 Suicidal ideations; G54.6 Phantom limb syndrome with pain; I10 Essential (primary) hypertension; F60.89 Other specific personality disorders; M19.90 Unspecified osteoarthritis, unspecified site; F41.9 Anxiety disorder, unspecified; E78.5 Hyperlipidemia, unspecified; K21.9 Gastro-esophageal reflux disease without esophagitis; G25.81 Restless legs syndrome; G89.29 Other chronic pain; K59.00 Constipation, unspecified; Z76.5 Malingerer [conscious simulation]; Z89.612 Acquired absence of left leg above knee; Z86.14 Personal history of Methicillin resistant Staphylococcus aureus infection; Z86.73 Personal history of transient ischemic attack (TIA), and cerebral infarction without residual deficits
CPT/HCPCS: 80048; 80061; 82728; 83036; 83540; 83550; 83735; 84443; 85025; 93971; 99285; Q0163

== ENCOUNTER 2017-09-11 19:43 | Emergency (ER) | payer OTHER, MEDICAID ==
[~2017-09-11] VITALS: Ht 162.6 cm; Wt 240.0 kg
[~2017-09-11 19:43] MED LIST changes: -BUTATAB6 PO; -DULO1CAP2 PO; +FERR325T20 PO; +FLUO20CA12 PO; +GABA100C4 PO; -GABA600T PO; +LOSA100T PO; +METH500T3 PO; +MIRTA15 PO; -NEUR300C PO; +NEUR400C PO; -OXYC1TAB36 PO; -QUET1TAB7 PO; -TRAZ50TA12 PO
--- NOTE | 2017-09-11 20:21 | PD ---
HPI Chief Complaint: Psychiatric Symptoms Time Seen by Provider: 20:03 Travel History International Travel<30 days: No Contact w/Intl Traveler<30days: No Traveled to known affect area: No History of Present Illness HPI This patient was a psychiatric inpatient for the last 10 days her. She was discharged today [facility] She says they were full and wouldn't take her. She came back here complaining of depression and suicidal ideation. Denies alcohol or drug abuse. Severity is moderate. Denies any specific plan. She says she just doesn't want to live. No alleviating factors. Symptoms exacerbated by her homelessness and chronic disability PFSH Past Medical History Arthritis: Yes Blood Disorders: No Anxiety: Yes Depression: Yes Heart Rhythm Problems: No Cancer: No Cardiovascular Problems: Yes High Cholesterol: Yes Chemotherapy: No Chest Pain: No Congestive Heart Failure: No Cerebrovascular Accident: Yes (TIA) Diminished Hearing: No Endocrine: No Gastrointestinal Disorders: Yes (HEARTBURN, CONSTIPATION) Genitourinary: No Headaches: No Hypertension: Yes Immune Disorder: No Implanted Vascular Access Dvce: No Musculoskeletal: Yes Neurologic: Yes Psychiatric: Yes (Hx of treatment for depression) Reproductive: No Respiratory: No Migraines: Yes Radiation Therapy: No Seizures: No ?: Not Tubal Ligation: Yes Past Surgical History Abdominal Surgery: No Cardiac Surgery: No Section: Yes (X2) Ear Surgery: No Endocrine Surgery: No Eye Surgery: No Genitourinary Surgery: No Gynecologic Surgery: Yes () Neurologic Surgery: Yes (BRAIN SURGERY AT ) Oral Surgery: No Thoracic Surgery: No Other Surgery: Yes (HEAD SURG AT WHICH CAUSED LEFT SIDE PARAYLISIS) Social History Alcohol Use: Yes (occ) Tobacco Use: No Substance Use: Yes Allergies-Medications (Allergen,Severity, Reaction): Coded Allergies: codeine (Unverified Allergy, Mild, EDEMA, 04/28/17) tramadol (Unverified Allergy, Mild, "MY EYES ROLL BACK", 04/28/17) sulfamethoxazole (Verified Allergy, Unknown, 05/20/17) trimethoprim (Verified Allergy, Unknown, 05/20/17) Reported Meds & Prescriptions Reported Meds & Active Scripts Active Ferosul (Ferrous Sulfate) 325 Mg (65 Mg Iron) Tablet 325 Mg PO BID@,17 5 Days Mirtazapine 15 Mg Tab 30 Mg PO HS 5 Days Fluoxetine (Fluoxetine HCl) 20 Mg Capsule 60 Mg PO DAILY 5 Days Neurontin (Gabapentin) 400 Mg Cap 800 Mg PO HS 5 Days Gabapentin 100 Mg Cap 200 Mg PO HS 5 Days Neurontin (Gabapentin) 400 Mg Cap 800 Mg PO DAILY 5 Days Methocarbamol 500 Mg Tab 500 Mg PO Q8HR PRN Senna Plus 8.6-50 mg (Sennosides-Docusate Sodium) 1 Tab Tab 1 Tab PO BID Pravachol (Pravastatin) 40 Mg Tab 40 Mg PO DAILY Adult Aspirin EC Low Strength (Aspirin) 81 Mg Tabec 81 Mg PO DAILY Reported Losartan (Losartan Potassium) 100 Mg Tab 100 Mg PO DAILY Review of Systems General / Constitutional: No: Fever Eyes: No: Visual changes HENT: No: Headaches Cardiovascular: No: Chest Pain or Discomfort Respiratory: No: Shortness of Breath Gastrointestinal: No: Abdominal Pain Genitourinary: No: Dysuria Musculoskeletal: Positive: Limited ROM, Weakness, No: Pain Skin: No Rash Neurologic: Positive: Weakness Psychiatric: Positive: Depression, Suicidal Ideations Endocrine: No: Polydipsia Hematologic/Lymphatic: No: Easy Bruising Physical Exam Narrative GENERAL: Morbidly obese disheveled well-developed patient in no apparent distress. SKIN: Focused skin assessment reveals no rash and nodules. Skin is Warm and dry. HEAD: Atraumatic. Normocephalic. EYES: Pupils equal and round. No scleral icterus. No injection or drainage. ENT: No nasal bleeding or discharge. Mucous membranes pink and moist. NECK: Trachea midline. No JVD. CARDIOVASCULAR: Regular rate and rhythm. No murmur appreciated. RESPIRATORY: No accessory muscle use. Clear to auscultation. Breath sounds equal bilaterally. GASTROINTESTINAL: Abdomen soft, non-tender, nondistended. Hepatic and splenic margins not palpable. MUSCULOSKELETAL: Patient has a left-sided AKA . No clubbing. No cyanosis. No edema. NEUROLOGICAL: Awake and alert. No obvious cranial nerve deficits. Motor exam reveals left upper extremity weakness. Normal speech. PSYCHIATRIC: Depressed mood and flat affect; insight and judgment poor . Data Data Last Documented VS Vital Signs Date Time Temp Pulse Resp B/P (MAP) Pulse Ox O2 Delivery O2 Flow Rate FiO2 09/11/17 20:28 98.5 89 16 165/84 (111) 98 Room Air Orders Orders Complete Blood Count With Diff (09/11/17 20:11) Basic Metabolic Panel (Bmp) (09/11/17 20:11) Psych Screen (09/11/17 20:11) Labs Laboratory Tests Test 09/11/17 20:25 White Blood Count 15.3 TH/MM3 Red Blood Count 5.53 MIL/MM3 Hemoglobin 13.2 GM/DL Hematocrit 41.3 % Mean Corpuscular Volume 74.7 FL Mean Corpuscular Hemoglobin 23.8 PG Mean Corpuscular Hemoglobin Concent 31.9 % Red Cell Distribution Width 22.7 % Platelet Count 221 TH/MM3 Mean Platelet Volume 8.0 FL Neutrophils (%) (Auto) 74.6 % Lymphocytes (%) (Auto) 19.1 % Monocytes (%) (Auto) 3.8 % Eosinophils (%) (Auto) 2.0 % Basophils (%) (Auto) 0.5 % Neutrophils # (Auto) 11.4 TH/MM3 Lymphocytes # (Auto) 2.9 TH/MM3 Monocytes # (Auto) 0.6 TH/MM3 Eosinophils # (Auto) 0.3 TH/MM3 Basophils # (Auto) 0.1 TH/MM3 CBC Comment DIFF FINAL Differential Comment Blood Urea Nitrogen 12 MG/DL Creatinine 0.75 MG/DL Random Glucose 108 MG/DL Calcium Level 8.6 MG/DL Sodium Level 139 MEQ/L Potassium Level 3.7 MEQ/L Chloride Level 106 MEQ/L Carbon Dioxide Level 20.7 MEQ/L Anion Gap 12 MEQ/L Estimat Glomerular Filtration Rate 84 ML/MIN MDM Medical Decision Making Medical Screen Exam Complete: Yes Emergency Medical Condition: Yes Medical Record Reviewed: Yes Differential Diagnosis Depression, suicidal ideation, malingering Narrative Course I have reviewed the patient's electronic medical record. Reviewed her discharge summary from earlier today CBC shows some nonspecific leukocytosis with normal hemoglobin Metabolic profile looks reasonably normal I've ordered psychiatric screening has patient presents under Rojo act As noted, the patient just left the hospital today. I don't think she needs any further medical clearance. She is awaiting psychiatric evaluation to determine disposition. John Bermeo MD Sep 11, 2017 20:21
[2017-09-11 20:28] VITALS: BP 165/84; PULSE 89; RESP 16; TEMP 98.5; O2SAT 98
[2017-09-11 20:50] LABS: AUTOMATED NEUTROPHIL # 11.4 TH/MM3 (1.8-7.7); BASOPHIL # 0.1 TH/MM3 (0-0.2); BASOPHIL % 0.5 % (0.0-2.0); EOSINOPHIL # 0.3 TH/MM3 (0-0.4); HEMATOCRIT 41.3 % (35.0-46.0); HEMOGLOBIN 13.2 GM/DL (11.6-15.3); LYMPH % 19.1 % (9.0-44.0); LYMPHOCYTE # 2.9 TH/MM3 (1.0-4.8); MEAN CELL VOLUME 74.7 FL (80.0-100.0); MEAN CORPUSCULAR HEMOGLOBIN 23.8 PG (27.0-34.0); MEAN CORPUSCULAR HGB CONC 31.9 % (32.0-36.0); MONO % 3.8 % (0.0-8.0); MONOCYTE # 0.6 TH/MM3 (0-0.9); NEUT % 74.6 % (16.0-70.0); PLATELET COUNT 221 TH/MM3 (150-450); RED BLOOD COUNT 5.53 MIL/MM3 (4.00-5.30); RED CELL DISTRIBUTION WIDTH 22.7 % (11.6-17.2); WHITE BLOOD COUNT 15.3 TH/MM3 (4.0-11.0)
[2017-09-11 21:18] LABS: BICARBONATE 20.7 MEQ/L (21.0-32.0); CALCIUM 8.6 MG/DL (8.5-10.1); CREATININE 0.75 MG/DL (0.50-1.00)
[2017-09-12 07:21] VITALS: BP 135/60; PULSE 105; RESP 18; TEMP 98.3; O2SAT 98
--- NOTE | 2017-09-12 11:13 | HHI.PYPN ---
Subjective Remarks Patient seen and examined with nurse. Chart reviewed. Case discussed with nursing staff. Patient presents under a Rojo act from [facility] alleging that the patient said that she has lost the will to live and wanted to . She told the officer that she would kill herself by ingesting pills allegedly. On my examination today, the patient presents as dysphoric and needy. She says that in fact she did make a small ingestion of 4 x 800mg ibuprofen tablets. When pressed, she admits that she did so to gain readmission to the inpatient psychiatric unit. She can elaborate no rationale for readmission other than that she "need[s] support." When I inquire about the nature of the support she is seeking, it is clear that she wishes to be housed on the inpatient unit. Affect is slightly dysphoric, but there are no mood symptoms elaborated otherwise. There is no evidence of any impairment in reality construction or psychosis. Cluster B personality traits noted. The remainder of the psychiatric ROS is negative. No new physical complaints at this time. Review of Systems Except as stated in HPI: all other systems reviewed are Neg Mental Status Examination Appearance: Disheveled Consciousness: Alert Orientation: x4 Motor Activity: Other (no motor abnormalities noted) Speech: Unremarkable Language: Adequate Fund of Knowledge: Adequate Attention and Concentration: Adequate Memory: Unremarkable Mood: Other (somewhat dysphoric) Affect: Other (restricted) Thought Process & Associations: Intact, Logical, Goal directed, Linear Thought Content: Appropriate Hallucination Type: None Delusion Type: None Suicidal Ideation: Yes (vague threats) Homicidal Ideation: No (no HI voiced at this time) Insight: Poor Judgment: Poor Results Labs Test 09/11/17 20:25 White Blood Count 15.3 TH/MM3 Red Blood Count 5.53 MIL/MM3 Hemoglobin 13.2 GM/DL Hematocrit 41.3 % Mean Corpuscular Volume 74.7 FL Mean Corpuscular Hemoglobin 23.8 PG Mean Corpuscular Hemoglobin Concent 31.9 % Red Cell Distribution Width 22.7 % Platelet Count 221 TH/MM3 Mean Platelet Volume 8.0 FL Neutrophils (%) (Auto) 74.6 % Lymphocytes (%) (Auto) 19.1 % Monocytes (%) (Auto) 3.8 % Eosinophils (%) (Auto) 2.0 % Basophils (%) (Auto) 0.5 % Neutrophils # (Auto) 11.4 TH/MM3 Lymphocytes # (Auto) 2.9 TH/MM3 Monocytes # (Auto) 0.6 TH/MM3 Eosinophils # (Auto) 0.3 TH/MM3 Basophils # (Auto) 0.1 TH/MM3 CBC Comment DIFF FINAL Differential Comment Blood Urea Nitrogen 12 MG/DL Creatinine 0.75 MG/DL Random Glucose 108 MG/DL Calcium Level 8.6 MG/DL Sodium Level 139 MEQ/L Potassium Level 3.7 MEQ/L Chloride Level 106 MEQ/L Carbon Dioxide Level 20.7 MEQ/L Anion Gap 12 MEQ/L Estimat Glomerular Filtration Rate 84 ML/MIN Labs reviewed. Vitals/IOs Vital Signs Date Time Temp Pulse Resp B/P (MAP) Pulse Ox O2 Delivery O2 Flow Rate FiO2 09/12/17 07:21 98.3 105 18 135/60 (85) 98 Room Air Assessment & Plan Problem List: (1) Cluster B personality traits (2) Malingering ICD Codes: Z76.5 - Malingerer [conscious simulation] Assessment & Plan 42-year-old female recently discharged from the inpatient psychiatric unit returns under a Rojo act. Patient reports that she has made a small ingestion of ibuprofen, and as I had feared her goal in doing so is simply to gain readmission to the inpatient unit as she remains homeless. Since the patient purports to have made an ingestion, I will not lift the Rojo Act at this time and plan to observe the patient in the J-pod. Case d/w RN. Justification for Cont. Inpt. N/A Lenard Garcia MD Sep 12, 2017 11:13
[2017-09-12] MEDS ORDERED: PANT40TA3 PO (16:58)
[2017-09-12] MEDS ORDERED: IBUP-232 PO (16:59)
[2017-09-12] MEDS ORDERED: METO1TAB9 PO (16:59)
[2017-09-12] MEDS ORDERED: ASPI-183 PO (17:00)
[2017-09-12 19:54] VITALS: BP 146/78; PULSE 105; RESP 17; TEMP 99.9; O2SAT 97
[2017-09-12] MEDS ORDERED: Atarax PO (20:03)
[2017-09-12] MEDS ORDERED: BENA25TA6 PO (20:06)
[2017-09-12] MEDS ORDERED: PERC5TAB12 PO (20:07)
[2017-09-12] MEDS ORDERED: ASPIRIN 325 MG TAB PO ONE (20:45)
[2017-09-12] MEDS ORDERED: METOPROLOL SUCCINATE 50 MG EXTENDED RELEASE TAB PO ONE (20:45)
[2017-09-12] MEDS ORDERED: diphenhydrAMINE HCL 50 MG CAP PO ONE (20:45)
[2017-09-12 23:44] VITALS: BP 128/60; PULSE 93; RESP 18; TEMP 98.9; O2SAT 96
[2017-09-13 06:45] VITALS: BP 112/74; PULSE 94; RESP 17; TEMP 97.6; O2SAT 97
[2017-09-15] MEDS ORDERED: HYDR50TA94 PO (12:12)
== END 2017-09-13 08:40 ==
LOC: NEPD 19:43 → NEPJ 09-13 08:40
DX: F32.9 Major depressive disorder, single episode, unspecified (principal); R45.851 Suicidal ideations; D72.829 Elevated white blood cell count, unspecified; E66.01 Morbid (severe) obesity due to excess calories; M19.90 Unspecified osteoarthritis, unspecified site; F41.9 Anxiety disorder, unspecified; E78.00 Pure hypercholesterolemia, unspecified; I10 Essential (primary) hypertension; Z59.0 Homelessness
CPT/HCPCS: 80048; 85025; 99285; Q0163